=== PATIENT | female | born 1940 | race Caucasian/White ===

== ENCOUNTER 2016-05-25 19:07 | Emergency (ER) | payer MEDICARE, BC ==
[2011-06-18 10:47] VITALS: BMI 38.1
== END 2016-05-25 22:03 | disposition home or self-care (01) ==
LOC: D.ER 19:07
DX: M75.102 Unspecified rotator cuff tear or rupture of left shoulder, not specified as traumatic (principal); M54.12 Radiculopathy, cervical region; J45.909 Unspecified asthma, uncomplicated; C67.9 Malignant neoplasm of bladder, unspecified; E11.9 Type 2 diabetes mellitus without complications; Z79.4 Long term (current) use of insulin; K21.9 Gastro-esophageal reflux disease without esophagitis; Z95.0 Presence of cardiac pacemaker; I12.9 Hypertensive chronic kidney disease with stage 1 through stage 4 chronic kidney disease, or unspecified chronic kidney disease; N18.9 Chronic kidney disease, unspecified; F41.9 Anxiety disorder, unspecified

== ENCOUNTER 2016-12-01 05:38 | Inpatient (IN) | payer MEDICARE, BC ==
[~2016-12-01] VITALS: Ht 152.4 cm; Wt 75.5 kg
[2016-12-01] VITALS (9 sets, daily range): BP systolic 130–143; BP diastolic 49–93; BMI 37.1
--- NOTE | ~2016-12-01 | HEMODYNAMI ---
PATIENT:NISHA MORALES MEDICAL RECORD: [id number] : 42 LOCATION:[facility] D.2310 ADMISSION DATE: 12/01/16 Generatedon:12/02/201611:59 Patient name: NISHA MORALES Patient #: [id number] SSN : : 1940 Date of study: 12/02/2016 Page: Of Hemodynamic Procedure Report Patient Data Patient Demographics Procedure consent was obtained First Name: NISHA Gender: Female Last Name: CARMEN : 1940 [facility] Initial: MELIDA Age: 76 year(s) Patient #: [id number] Race: Unknown Additional ID: [id number] Contact details [address]: [address] [place] [address] State: [place] City: [place] Zip code: [address] Past Medical History Allergies Allergen Reaction Date Comments Reported Heparin agents 12/02/2016 Iodine 12/02/2016 Other allergy 12/02/2016 Levaquin Admission Admission Data Admission Date: 12/01/2016 Admission Time: 6:35 Room #: D.2310 Procedure Procedure Types Cath Procedure Diagnostic Procedure LHC LHC w/Coronaries w/Grafts Procedure Description Procedure Date Procedure Date: 12/02/2016 Procedure Start Time: 11:40 Procedure End Time: 11:59 Procedure Staff Name Function Fredis Sharma MD Performing Physician Lorna Gannon RT Scrub Aubrie Phelps RN Nurse Deepa Chambers RT Monitor Procedure Data Cath Procedure Fluoroscopy Diagnostic fluoroscopy Total fluoroscopy Time: 4.3 time: 4.3 min min Diagnostic fluoroscopy Total fluoroscopy dose: 367 dose: 367 mGy mGy Contrast Material Contrast Material Type Amount (ml) Isovue 300 69 Entry Location Entry Primary Successful Side Size Upsize Upsize Entry Closure Succes sful Closure Location (Fr) 1 (Fr) 2 (Fr) Remarks Device Remarks Femoral Right 5 Fr Exoseal artery Estimated blood loss: 5 ml Diagnostic catheters Device Type Used For End Catheter Placement Cordis 5Fr JL 4.0 Left Coronary Catheter (MP) Angiography Diagnostic Infinity 5Fr Right Coronary AR MOD Catheter Angiography Diagnostic Infinity 5Fr Internal mammary IM catheter arteriography Cordis 5Fr Pigtail Aortic Root Catheter (MP) Angiography Procedure Complications No complications Procedure Medications Medication Administration Route Dosage Oxygen 13 l/min 0.9% NaCl I.V. Lidocaine 2% added to field 20 0.9% NaCl 1000 ml 0.9% NaCl added to field 250 ml Fentanyl I.V. 25 mcg Hemodynamics Rest Heart Rate: 97 (bpm) Pressure Samples Time Site Value (mmHg) Purpose Heart Use Rate(bpm) 11:53 AO 130/68(95) Snapshot 99 Snapshots Pre Cath Intra NCS Post Cath Vital Signs Time Heart Resp SPO2 etCO2 NIBP (mmHg) Rhythm Pain Sedation Rate (ipm) (%) (mmHg) Status Level (bpm) 11:32:26 98 20 98 0 134/84(105) Paced 0 (11) 10(A) , No pain 11:36:47 97 19 100 0 133/82(106) Paced 0 (11) 10(A) , No pain 11:41:04 98 16 100 0 133/87(102) Paced 0 (11) 10(A) , No pain 11:45:25 98 17 98 0 131/79(99) Paced 0 (11) 9(A) , No pain 11:49:45 96 18 97 0 130/75(104) Paced 0 (11) 9(A) , No pain 11:54:07 98 19 98 0 126/74(100) Paced 0 (11) 10(A) , No pain 11:58:27 98 19 97 0 134/74(106) Paced 0 (11) 10(A) , No pain Medications Time Medication Route Dose Verified Delivered Reason Notes Effe ctiveness by by 11:33:56 Oxygen oximizer 13 Fredis Buffie Per continued mask l/min Zachary Phelps RN physician from icu 11:34:35 0.9% NaCl I.V. kvo Fredis Buffie Per ml/hr Zachary Phelps RN physician 11:34:45 Lidocaine added to 20ml Fredis Fredis for local 2% field vial Zachary Sharma MD anesthetic 11:38:22 0.9% NaCl for 1000 Fredis Fredis Per assist ml Zachary Sharma MD physician fliud 11:38:40 0.9% NaCl added to 250 Fredis Fredis Per field ml Zachary Sharma MD physician 11:42:03 Fentanyl I.V. 25 Fredis Fredis for [facility] [place] Zachary Sharma MD pain Procedure Log Time Note 10:53:19 Aubrie Phelps RN sent for patient. Start room use. 10:53:31 Time tracking: Regular hours 10:53:34 Plan of Care:Hemodynamics will remain stable., Cardiac rhythm will remain stable., Comfort level will be maintained., Respiratory function will remain adequate., Patient/ family verbilizes understanding of procedure., Procedure tolerated without complication., Recovers from procedure without complications.. 11:20:52 Patient received from ICU to CCL 3 Alert and oriented. Tansferred to table in Supine position. 11:20:54 Warm blankets applied, and mervin hugger turned on for patient comfort. 11:20:54 Correct patient and procedure confirmed by team. 11:20:55 Signed procedure consent form obtained from patient. 11:20:56 ECG and BP/O2 sat monitors applied to patient. 11:20:57 Full Disclosure recording started 11:30:03 Vital chart was started 11:30:09 Rhythm: paced 11:30:56 H&P Date Dictated: 12/01/2016 Within 30 days and on chart.. 11:31:08 Pre-procedure instructions explained to patient. 11:31:08 Pre-op teaching completed and patient verbalized understanding. 11:31:55 Family unavailable. 11:31:56 Patient NPO since Midnight. 11:32:18 Patient allergic to Heparin agents 11:32:23 Patient allergic to Iodine 11:32:33 Patient allergic to Other allergyLevaquin 11:32:35 Is the patient allergic to Iodine/contrast media? Yes. 11:32:37 Was the patient premedicated? Yes 11:33:24 Is patient on blood thinner?Yes 11:33:30 ACC The patient was administered the following blood thiners within the last 24 hours: None 11:33:32 Patient diabetic? Yes. 11:33:34 If diabetic: On Metformin? No 11:33:37 Previous problem with sedation/anesthesia? No ? 11:33:37 Snore? Yes 11:33:38 Sleep apnea? No 11:33:39 Deviated septum? No 11:33:40 Opens mouth fully? Yes 11:33:41 Sticks out tongue? Yes 11:33:45 Airway obstruction? Yes COPD 11:33:54 Dentures? No ? 11:33:56 Oxygen 13 l/min oximizer mask was administered by Aubrie Phelps RN; Per physician; continued from icu 11:33:56 Pre procedure: right dorsailis pedis pulse 2+ Normal; easily identifiable; not easily obliterated 11:33:59 Patient pain scale 0/10 ?. 11:34:06 IV patent on arrival in left hand with 0.9% NaCl at KVO. 11:34:09 Lab results completed and on chart. 11:34:11 Right groin area was prepped with chlora-prep and draped in sterile fashion 11:34:12 Alarms reviewed by R. N. 11:34:12 Sharps counted by scrub and verified by R.N. 11:34:15 Use device set Femoral Dx 11:34:16 Acist Syringe opened to sterile field. 11:34:17 Bag Decanter opened to sterile field. 11:34:17 Medline Cath Pack opened to sterile field. 11:34:18 Terumo 5Fr [place] Sheath opened to sterile field. 11:34:18 St Elvin 260cm J .035 wire opened to sterile field. 11:34:19 Acist Hand Control opened to sterile field. 11:34:20 Acist Manifold opened to sterile field. 11:34:20 Diagnostic Infinity 5Fr Multipack catheter opened to sterile field. 11:34:21 Tegaderm 4 x 4 opened to sterile field. 11:34:35 0.9% NaCl kvo ml/hr I.V. was administered by Aubrie Phelps RN; Per physician; 11:34:45 Lidocaine 2% 20ml vial added to field was administered by Fredis Sharma MD; for local anesthetic; 11:35:02 Baseline sample Acquired. 11:36:31 Final Timeout: patient, procedure, and site verified with staff and physician. All members of the team are in agreement. 11:36:41 Right groin site verified by team. 11:36:51 Physical assessment completed. ASA score P 3 - A patient with severe systemic disease as per Fredis Sharma MD. 11:36:53 Sedation plan: IV Moderate Sedation Versed, Fentanyl 11:38:22 0.9% NaCl 1000 ml for assist fliud was administered by Fredis Sharma MD; Per physician; 11:38:40 0.9% NaCl 250 ml added to field was administered by Fredis Sharma MD; Per physician; 11:40:36 Procedure started. 11:40:39 Local anesthetic to right femoral artery with Lidocaine 2% by Fredis Sharma MD.INITIAL ACCESS ONLY 11:40:40 Zero performed for pressure channel P1 11:40:51 A 5 Fr sheath was inserted into the Right Femoral artery 11:42:03 Fentanyl 25 mcg I.V. was administered by Fredis Sharma MD; for back pain; 11:43:34 A Cordis 5Fr JL 4.0 Catheter (MP) was advanced over the wire and used for Left Coronary Angiography. 11:44:57 Catheter removed. 11:45:24 A Diagnostic Infinity 5Fr AR MOD Catheter was advanced over the wire and used for Right Coronary Angiography. 11:50:40 Catheter removed. 11:51:22 A Diagnostic Infinity 5Fr IM catheter was advanced over the wire and used for Internal mammary arteriography. 11:53:39 Catheter removed. 11:53:49 A Cordis 5Fr Pigtail Catheter (MP) was advanced over the wire and used for Aortic Root Angiography. 11:54:03 Injector settings: Ml/sec: 15, Volume: 30, 11:54:45 Catheter removed. 11:54:56 Cordis 6Fr Exoseal opened to sterile field. 11:55:07 Sheath removed intact; hemostasis achieved with Exoseal to the Right Femoral artery. 11:55:09 Procedure ended.(Physican Out) 11:55:30 Fluoroscopy time 04.30 minutes. 11:55:36 Flurop Dose total: 367 11:55:36 Fluoroscopy dose: 367 mGy 11:55:51 Contrast amount:Isovue 300 69ml. 11:56:18 Sharps counted by scrub and verified by R.N. 11:56:26 Insertion/operative site no bleeding no hematoma. 11:56:29 Post-op/insertion site Right Femoral artery dressed using a 4 x 4 and Tegaderm. 11:56:32 Post right femoral artery:stable, clean and dry 11:56:33 Post Procedure Pulses reassessed and unchanged 11:56:38 Post-procedure physical assessment completed. ASA score P 3 - A patient with severe systemic disease as per Fredis Sharma MD. 11:56:40 Post procedure rhythm: unchanged. 11:56:42 Estimated blood loss: 5 ml 11:56:43 Post procedure instruction explained to patient.Patient verbalizes understanding. 11:56:43 Patient needs reinforcement of post procedure teaching. 11:56:56 Procedure type changed to Cath procedure, Diagnostic procedure, LHC, LHC w/Coronaries w/Grafts 11:57:00 Procedure Complication : No complications 11:57:02 See physician's report for complete and final results. 11:57:25 Procedure and supply charges have been captured, reviewed, submitted and are correct. 11:59:15 NO MODERATE SEDATION USED FOR PROCEDURE 11:59:19 Vital chart was stopped 11:59:22 Report given to ICU. 11:59:25 Patient transfered to ICU with Bed. 11:59:37 Procedure ended. 11:59:37 Full Disclosure recording stopped 11:59:40 End room use (Document Last) Device Usage Item Name Manufacture Quantity Catalog Hospital Part Current Minimal Lo t# / Number Charge Number Stock Stock Serial# Code Acist Acist 1 [id number] 845709 101617 134134 20 Syringe Medical [employer] Inc Bag Microtek 1 2002S 248312 63233 807124 5 Decanter [employer] Inc. Medline Cardinal 1 [id number] 682869 70852 866258 5 Cath Pack Health Terumo 5Fr Terumo 1 [id number] 962010 727398 385251 [address] Elvin 1 289872 512290 313331 301215 30 260cm J .035 wire Acist Hand Acist 1 38977 207562 355719 825972 5 Cocodrilo Dog [employer] Inc Acist Acist 1 46340 184609 441041 603882 5 TerraLUX Medical Systems Inc Diagnostic Cardinal 1 [id number] 984901 68321 923457 30 WegoWise 5Fr Multipack catheter Tegaderm 4 3M 1 1626W 193486 292507 294543 5 x 4 Cordis 5Fr Cardinal 1 508325 5 JL 4.0 Health Catheter (MP) Diagnostic Cardinal 1 [id number] 035362 665234 577633 15 WegoWise 5Fr AR MOD Catheter Diagnostic Cardinal 1 [id number] 492517 899358 131601 5 WegoWise 5Fr IM catheter Cordis 5Fr Cardinal 1 464440 5 Pigtail Health Catheter (MP) Cordis 6Fr Cardinal 1 EX600 093741 772900 387992 10 Exoseal Health Signature Audit [place] Stage Time Signature Unsigned Intra-Procedure 12/02/2016 Deepa 11:59:50 AM Counts RT(R) Signatures Monitor : Deepa Signature : Counts RT Date : Time : [address] [place] [address]
[2016-12-01 06:04] LABS: BASOPHILS 0.2 % (0-2); EOSINOPHILS 0.1 % (0-7); HEMATOCRIT 35.5 % (36.0-48.0); HEMOGLOBIN 11.2 g/dL (12-16); IMMATURE GRANULOCYTES 0.5 % (0-5); LYMPHOCYTES 7.7 % (15-50); MCH 28.8 pg (26.0-34.0); MCHC 31.5 g/dL (31.0-37.0); MCV 91.3 fL (80.0-100.0); MEAN PLATELET VOLUME 10.7 fL (7.4-10.4); MONOCYTES 4.5 % (2-11); RBC 3.89 10x6/uL (4.00-5.40); RDW 17.4 % (11.5-14.5); WBC 13.4 10x3/uL (4.8-10.8)
[2016-12-01 06:22] LABS: PLATELET COUNT 346 10x3/uL (130-400)
[2016-12-01 06:31] LABS: ALBUMIN 3.5 g/dL (3.4-5.0); ALKALINE PHOSPHATASE 165 U/L (46-116); ALT (SGPT) 24 U/L (10-68); BILIRUBIN - TOTAL 0.48 mg/dL (0.2-1.3); CALC OSMOLALITY 297 mosm/kg (275-300); CALCIUM 9.7 mg/dL (8.5-10.1); CARBON DIOXIDE 22.7 mmol/L (21.0-32.0); CHLORIDE - SERUM 99 mmol/L (98-107); CREATININE - SERUM 2.7 mg/dL (0.6-1.3); POTASSIUM - SERUM 4.1 mmol/L (3.5-5.1); PROTEIN - SERUM 8.3 g/dL (6.4-8.2); SODIUM 136 mmol/L (136-145); UREA NITROGEN 41 mg/dL (7-18); eGFR NON AFRICAN AMERICAN 18 mL/min (90-120)
[2016-12-01 06:37] LABS: GLUCOSE 390 mg/dL (74-106)
[2016-12-01 06:47] LABS: CHOL - HDL RATIO 2.7 ratio (2.3-4.1); CHOLESTEROL, TOTAL 169 mg/dL (0-200); CKMB 4.9 U/L (0.0-3.6); CREATINE KINASE 335 UL (21-215); HDL CHOLESTEROL 63 mg/dL (32-96); LDL CHOLESTEROL 87 mg/dL (0-100); LDL-HDL RATIO 1.4 ratio (1.5-3.5); PRO BNP 4542 pg/mL (0-450); TRIGLYCERIDE 95 mg/dL (30-200)
--- NOTE | 2016-12-01 15:34 | NUR ---
PT ARRIVED FROM ER VIA STRETCHER. ON 13L O2 VIA OXYMIZER. PT IS AWAKE AND ALERT. ANSWERS QUESTIONS APROPRIATELY. BP 142/83, HR 93, O2 SAT 96%, ORAL TEMP 97.8, RR 20. PT ADMITTED WITH SOB AND CHF. SOB NOTED ON EXERTION. LEFT HAND AC SALINE LOC. FREQUENT NON PRODUCTIVE COUGH NOTED. REPORTS NO CHEST PAIN AT THIS TIME. PERIPHERAL PULSES 2+. PT REPORTS NEUROPATHY ON HER FEET. SKIN WARM AND DRY. TRANSPARENT. CAPILLARY REFILL GREATER <3SEC. FULL ASSESSMENT CHARTED ON ASSESSMENT SECTION. PT DENIES OTHER NEEDS AT THIS TIME.
[2016-12-01] MEDS ORDERED: PREDNISONE10 MG PO (15:59)
[2016-12-01] MEDS ORDERED: DOXYCYCLINE HY100 M2 PO (16:01)
[2016-12-01] MEDS ORDERED: NORVASC5 MG PO (16:05)
[2016-12-01] MEDS ORDERED: ZOCOR10 MG PO (16:06)
[2016-12-01] MEDS ORDERED: LEXAPRO5 MG PO (16:08)
[2016-12-01] MEDS ORDERED: FUROSEMIDE40 MG PO (16:09)
[2016-12-01] MEDS ORDERED: TOPROL XL50 MG PO (16:10)
[2016-12-01] MEDS ORDERED: ISOSORBIDE MON120 M1 PO (16:11)
[2016-12-01] MEDS ORDERED: PLAVIX75 MG PO (16:13)
--- NOTE | 2016-12-01 19:00 | NUR ---
REPORT RECEIVED AND ASSESSMENT COMPLETED. SEE FLOWSHEET FOR FULL DETAILS. PT IS ON 13L HIGH FLOW CANNULA. SAT 96%. CRACKLES HEARD THROUGHOUT UPPER LOBES, AND IN MIDDLE RIGHT LOBE. LOWER LOBES BIMMINISHED. PT VERY SOB WITH ACTIVITY. CARDIOLOGY CONSULTED AND LASIX IS BEING GIVEN. WILL MONITOR THROUGHOUT SHIFT
--- NOTE | 2016-12-01 23:00 | NUR ---
REASSESSMENT COMPLETED SEE FLOWSHEET FOR FULL DETAILS. LASIX GIVEN SCHEDULED. WILL MONITOR URINE OUTPUT.
[2016-12-02] VITALS (28 sets, daily range): BP systolic 102–145; BP diastolic 60–88; Ht 152.4 cm; Wt 75.5 kg
--- NOTE | 2016-12-02 01:15 | NUR ---
NO CHANGES IN STATUS AT THIS TIME. WILL CONTINUE TO MONITOR
--- NOTE | 2016-12-02 03:00 | NUR ---
REASSESSMENT COMPLETED. SEE FLOWSHEET FOR FULL DETAILS. RADIOLOGY AT BEDSIDE FOR AM CXR. WILL CONTINUE TO MONITOR
[2016-12-02 03:44] LABS: BASOPHILS 0.3 % (0-2); EOSINOPHILS 0.7 % (0-7); HEMATOCRIT 32.6 % (36.0-48.0); HEMOGLOBIN 10.3 g/dL (12-16); IMMATURE GRANULOCYTES 0.3 % (0-5); LYMPHOCYTES 7.8 % (15-50); MCH 28.9 pg (26.0-34.0); MCHC 31.6 g/dL (31.0-37.0); MCV 91.3 fL (80.0-100.0); MEAN PLATELET VOLUME 10.1 fL (7.4-10.4); MONOCYTES 8.1 % (2-11); NEUTROPHILS 82.8 % (40-80); PLATELET COUNT 280 10x3/uL (130-400); RBC 3.57 10x6/uL (4.00-5.40); RDW 17.1 % (11.5-14.5); WBC 15.3 10x3/uL (4.8-10.8)
[2016-12-02 04:20] LABS: ALKALINE PHOSPHATASE 127 U/L (46-116); ALT (SGPT) 24 U/L (10-68); BILIRUBIN - TOTAL 0.77 mg/dL (0.2-1.3); CALC OSMOLALITY 294 mosm/kg (275-300); CALCIUM 9.1 mg/dL (8.5-10.1); CHLORIDE - SERUM 102 mmol/L (98-107); CKMB 15.2 U/L (0.0-3.6); CREATININE - SERUM 2.5 mg/dL (0.6-1.3); GLUCOSE 231 mg/dL (74-106); MAGNESIUM - SERUM 1.8 mg/dL (1.8-2.4); PHOSPHOROUS 3.9 mg/dL (2.5-4.9); PRO BNP 7997 pg/mL (0-450); PROTEIN - SERUM 7.3 g/dL (6.4-8.2); SODIUM 139 mmol/L (136-145); UREA NITROGEN 41 mg/dL (7-18); eGFR NON AFRICAN AMERICAN 20 mL/min (90-120)
--- NOTE | 2016-12-02 05:00 | NUR ---
TROPONIN LEVEL HAD SIGNIFICANT CHANGE FROM LAST DRAW. NOW 12.470. NOTIFIED. WILL CONTINUE TO MONITOR
--- NOTE | 2016-12-02 07:26 | HP ---
PATIENT: NISHA MORALES MEDICAL RECORD: [id number] ACCOUNT: [id number] LOCATION:[facility] D.2310 : 42 ADMISSION DATE: 12/01/16 HISTORY AND PHYSICAL EXAMINATION HISTORY OF PRESENT ILLNESS: A 76-year-old female who presented to the Emergency Room with progressive shortness of breath for the past week. PAST MEDICAL HISTORY: Significant for arthritis, asthma, COPD, CHF, known coronary artery disease, multiple stents, insulin-dependent diabetes mellitus, GERD, previous UT, hyperlipidemia, hypertension, insomnia, chronic kidney disease. PAST SURGICAL HISTORY: Stent placement, lumpectomy, benign biopsy, hysterectomy, appendectomy, cholecystectomy. MEDICATIONS: Reviewed as per chart. ALLERGIES: CONTRAST IODINE. REVIEW OF SYSTEMS: CONSTITUTIONAL: No known change in weight or appetite. HEENT: No cephalgia, visual changes, tinnitus, epistaxis or dysphagia. CARDIOVASCULAR: Increased shortness of breath, worsening orthopnea, has been sleeping on a recliner. PULMONARY: Denies hemoptysis. Denies night sweats. GASTROINTESTINAL: Denies hematemesis, hematochezia, or melena. GENITOURINARY: Denies dysuria. MUSCULOSKELETAL: No acute changes. ENDOCRINE: Denies polyuria, polydipsia, or polyphagia. Has had increased blood sugars. PHYSICAL EXAMINATION: VITAL SIGNS: As per intake, the patient presently in the ER. O2 sats 90% with supplemental O2. HEENT: Normocephalic, atraumatic. Eyes: Pupils are equally round and reactive to light and accommodation. Extraocular muscles intact. Conjunctiva was not injected. Ears: Canals patent, TMs are intact. Nose: Nares patent without drainage. Throat: No erythema. No exudates. NECK: Supple. No lymphadenopathy. No JVD. HEART: Regular rate and rhythm. No S3, S4. No rub. LUNGS: Diminished breath sounds at the bases. ABDOMEN: Soft, nontender. Bowel sounds all 4 quadrants. EXTREMITIES: Present times 4, no edema. NEUROLOGIC: Intact. LABORATORY DATA: ABG: pH of 7.303, pCO2 of 45.2, pO2 of 55, bicarbonate 22, CO2 23.8. Glucose 431. Hemoglobin 13.6, hematocrit 40, white count 13.4. The patient recently started on steroids. She is afebrile. Chemistry shows sodium of 136, potassium 4.1, chloride 99, bicarbonate 22.7, BUN 41, creatinine 2.7, glucose 390. Cardiac enzymes: CK 335, CK-MB is 4.9. Troponin 0.06. ProBNP is 4542. Chest x-ray: Cardiomegaly with moderate pulmonary edema, trace right pleural effusion. ASSESSMENT AND PLAN: HISTORY AND PHYSICAL [id number] NISHA MORALES 1. Hypoxemia, CHF, chest pain with elevated cardiac enzymes, chronic kidney disease. The patient is admitted to the ICU. Cautious diuresis. Consult cardiology with her known history of cardiovascular disease and also consult pulmonology with her hypoxemia. 2. Metabolic acidosis and uncontrolled diabetes, sliding scale insulin, high resistance. TRANSINT:[id number] Voice Confirmation ID: [id number] DOCUMENT ID: [id number] TASHI CUENCA DO at 0726 CC: [id number] DICTATION DATE: 12/01/16 1150 BEET WORKER: 12/01/16 1242 ADM IN [facility] [address] [place] [address]
--- NOTE | 2016-12-02 07:27 | NUR ---
ASSISTED TO TOILET, CONTINENT VOID NOTED VIA BEDSIDE TOILET. PT NOW IN BED. DENEIS ANY NEEDS. WILL CONTINUE PLAN OF CARE.
[2016-12-02 09:22] LABS: INR 1.08 (0.85-1.17); PROTIME 13.9 SECONDS (11.6-15.0)
[2016-12-02 09:23] LABS: APTT 30.6 SECONDS (22.8-39.4)
--- NOTE | 2016-12-02 10:28 | NUR ---
PER DIRECTOR OF CORPORATE RESPONSIBILITY ORDERS; PREOP PT. WILL PREOP NOW.
--- NOTE | 2016-12-02 11:15 | NUR ---
NORRIS PLACED AT THIS TIME PER DR SOLOMON ORDERS. NOTED 300ML CLEAR YELLOW URINE. NO ACUTE DISTRESS NOTED. WILL CONTINUE PLAN OF CARE.
--- NOTE | 2016-12-02 11:20 | NUR ---
LEFT AT THIS TIME TO DAIRY FEED MIXING OPERATOR VIA BED ACCOMPANED BY HOSPITAL STAFF. IS AWARE. PT DENIES ANY QUESTIONS OR CONCERNS. NO ACUTE DISTRESS NOTED.
--- NOTE | 2016-12-02 12:17 | NUR ---
PT RETURNED FROM MACHINE TOOL TECHNOLOGY INSTRUCTOR AT THIS TIME. NO ACUTE DISTRESS NOTED. GROIN DRSG TO BE CDI, NO S/S BLEEDING NOTED. WILL CONTINUE PLAN OF CARE.
--- NOTE | 2016-12-02 13:01 | NUR ---
NO ACUTE DISTRESS NOTED. AT BEDSIDE, DR VELAZQUEZ HAS SPOKEN WITH AND GIVEN UPDATE. PT RESTING. RESPIRATIONS STEADY AND UNLABORED. AWAKENS EASILY WHEN SPOKEN TO. WILL CONTINUE PLAN OF CARE.
--- NOTE | 2016-12-02 16:05 | NUR ---
UP IN BED VISITING WITH AT THIS TIME. DENIES ANY NEEDS. NO ACUTE DISTRESS NOTED. WILL CONTINUE PLAN OF CARE.
--- NOTE | 2016-12-02 18:22 | NUR ---
UP IN BED WATCHING TV AT THIS TIME. NO ACUTE DISTRESS NOTED. PT NOTED TO HAVE SOME NONPRODUCTIVE COUGHING. PT NOTED TO HAVE SOME DISCOMFORT TO SHOULDERS AND BACK, ACHING DISCOMFORT, DR CUENCA PAGED TO NOTIFY. WAITING FOR CALLBACK. TURNED Q2H. WILL CONTINUE PLAN OF CARE.
--- NOTE | 2016-12-02 19:30 | NUR ---
PT IN BED WITH EYES OPEN WATCHING TV. NO S/S OF DISTRESS NOTED. ALERT AND ORIENTED. NO NEEDS OR CONCERNS NOTED AT THIS TIME. CALL LIGHT IN REACH.
--- NOTE | 2016-12-02 20:31 | NUR ---
PT IN BED WITH AT BEDSIDE. AT 2009 PT COMPLAINS OF SUDDEN ONSET OF CHEST PAIN WITH HR 129 AND RESP. 18-26. PHYSICIAN ON SITE WITH ORDERS FOR PRN MORPHINE AND NITRO. PT STATES RELIEF IN INTENSITY. WILL CONTINUE TO OBSERVE. CALL LIGHT IN REACH.
--- NOTE | 2016-12-02 23:59 | NUR ---
PT IV ALARM CONTINUES TO ALARM DUE TO OCCLUSION WITH IV SITE MOVED TO LEFT FOREARM WITH 22GA IV CATHETER USED. NO FURTHER CONCERNS WITH IV AT THIS TIME. DR. VELAZQUEZ CALLED FOR CONTINUOUS SINUS TACH OF 120 TO 130 AT 2300 AND RETURNS CALL AND PT HEART RARE 117-119 INFORM OF ORDERS RECEIVED FOR MORPHINE AND ATIVAN WITH NO NEW ORDERS GIVEN. PT RESTING WITH EYES CLOSED AND CHEST RISING. NO CONCERNS NOTED AT THIS TIME. WILL CONTINUE TO OBSERVE. CALL LIGHT IN REACH.
[2016-12-03] VITALS (24 sets, daily range): BP systolic 107–153; BP diastolic 53–96
--- NOTE | 2016-12-03 01:15 | NUR ---
PT IN BED WITH EYES CLOSED AND CHEST RISING. FREQUENTLY ROUSES. PT CALM AND NO COMPLAINTS MADE KNOWN AT THIS TIME. WILL CONTINUE OBSERVE. CALL LIGHT IN REACH.
--- NOTE | 2016-12-03 03:00 | NUR ---
PT IN BED WITH EYES CLOSED AND CHEST RISING. HR 117-120 WITH PHYSICIAN AWARE. NO OTHER CONCERNS NOTED. WILL CONTINUE TO OBSERVE. CALL LIGHT IN REACH
[2016-12-03 04:49] LABS: APPEARANCE HAZY (CLEAR); BILIRUBIN NEGATIVE (NEGATIVE); COLOR YELLOW (YELLOW); EPITHELIAL CELLS RARE /hpf (0-5); GLUCOSE 100 mg/dL (NEGATIVE); KETONE NEGATIVE (NEGATIVE); NITRITE NEGATIVE (NEGATIVE); PROTEIN 1+ mg/dL (NEGATIVE); SPECIFIC GRAVITY 1.015 (1.005-1.020); UROBILINOGEN NORMAL (NORMAL); WHITE CELLS - URINE 0-5 /hpf (0-5)
[2016-12-03 04:51] LABS: CREATININE - URINE 85.2 mg/dL (30-125); PRO/CRE RATIO URINE 1.8 mg/g; PROTEIN - URINE 149.3 mg/dL (0.0-11.9)
[2016-12-03 05:12] LABS: BASOPHILS 0.1 % (0-2); EOSINOPHILS 0 % (0-7); HEMATOCRIT 35.4 % (36.0-48.0); HEMOGLOBIN 11.3 g/dL (12-16); IMMATURE GRANULOCYTES 0.5 % (0-5); LYMPHOCYTES 4.6 % (15-50); MCHC 31.9 g/dL (31.0-37.0); MEAN PLATELET VOLUME 10.7 fL (7.4-10.4); MONOCYTES 6.2 % (2-11); NEUTROPHILS 88.6 % (40-80); PLATELET COUNT 320 10x3/uL (130-400); RBC 3.89 10x6/uL (4.00-5.40); RDW 16.9 % (11.5-14.5); WBC 17.6 10x3/uL (4.8-10.8)
--- NOTE | 2016-12-03 05:15 | NUR ---
PT IN BED WITH EYES OPEN WATCHING TV. AT BEDSIDE. NO CONCERNS NOTED. UA COLLECTED AND SENT TO LAB. WILL CONTINUE TO OBSERVE. CALL LIGHT IN REACH.
[2016-12-03 05:26] LABS: ANION GAP 15.4 mmol/L (8-16); CALCIUM 9.5 mg/dL (8.5-10.1); CARBON DIOXIDE 25.1 mmol/L (21.0-32.0); CREATININE - SERUM 2.9 mg/dL (0.6-1.3); MAGNESIUM - SERUM 2.1 mg/dL (1.8-2.4); PHOSPHOROUS 4.5 mg/dL (2.5-4.9); POTASSIUM - SERUM 3.5 mmol/L (3.5-5.1)
[2016-12-03 08:17] LABS: IMMUNOGLOBULIN E 267 IU/mL (0-100)
--- NOTE | 2016-12-03 09:15 | NUR ---
ANXIOUS AND HAVING RESP DIFFICULTY. SPO2 85. MORPHINE GIVEN IV AND SL NTG GIVEN. O2 INCREASED TO 15LPM OXIMIZER.
--- NOTE | 2016-12-03 10:45 | NUR ---
O2 CHANGED TO BIPAP FIO2 65%.
--- NOTE | 2016-12-03 12:00 | NUR ---
DR. AMURICE CONSULTED TO PLACE TRIALYSIS CATH.
--- NOTE | 2016-12-03 16:39 | NUR ---
NUCLEAR MED SCAN CANCELLED FOR TODAY. UNABLE TO LIE FLAT FOR SCAN. WILL ATTEMPT AGAIN IN AM.
--- NOTE | 2016-12-03 16:40 | NUR ---
PATIENT UNABLE TO LIE FLAT. UNABLE TO PERFORM V/Q SCAN UNLESS PATIENT CAN LIE FLAT. V/Q IS CANCELLED FOR NOW. IF PATIENT BECOMES ABLE TO LIE FLAT AND PROCEED WITH V/Q, PLEASE RE-ORDER THE SCAN SO THAT RADIOLOGY WILL KNOW TO NOTIFY NUCLEAR MED.
--- NOTE | 2016-12-03 16:56 | EC ---
PATIENT:NISHA MORALES DATE OF SERVICE: 12/01/16 SEX: F MEDICAL RECORD: [id number] DATE OF : 42 LOCATION:[facility] AGE OF PATIENT: 76 ADMISSION DATE: 12/01/16 REFERRING PHYSICIAN: INTERPRETING PHYSICIAN: REID ZAYAS MD ECHOCARDIOGRAM REPORT ECHO CHARGES 4 ECHO COMPLETE CLINICAL DIAGNOSIS: CHEST PAIN,CHF ECHOCARDIOGRAPHIC MEASUREMENTS (adult normal given) AC root (d.<3.7cm) 2.1 cm LV Septum d (<1.2 cm> 1.1 cm Valve Excursion 1.3 cm LV Septum (systole) 1.3 cm Left Atria (s.<4.0cm> 3.3 cm LVPW d(<1.2cm) 1.5 cm RV (d.<2.3cm) 2.9 cm LVPW (sytole) 1.6 cm LV diastole(<5.6CM) 5.7 cm MV E-F(>70mm/sec) cm LV systole 4.5 cm LVOT Diameter 1.1 cm MV exc.(>10mm) 0.80 cm Est.ejection fraction (50-75%) % Pericardial Effusion N DOPPLER: LVIT cm/sec A cm/sec E cm/sec LA cm/sec RVSP 53 mmHg LVOT 134 cm/sec AOP1/2T m/s Asc. Ao 203 cm/sec RVOT cm/sec RA cm/sec PA cm/sec AV Gradient Peak 16.56mmHg AV Mean 8.41 mmHg AV Area 1.0 cm MV Gradient Peak 12.05mmHg MV Mean 4.49 mmHg MV Area cm COMMENTS: Needlemaker: Horace SKINNER Fibre Optic Cable Splicer: 1 Dr. Zayas TAPE# PACS DATE OF SERVICE: 12/02/2016 Echocardiogram FINDINGS: 1. Left ventricle chamber size is mildly dilated. Left ventricular systolic function is mildly reduced, overall ejection fraction 40%. 2. Left atrium, right atrium, and right ventricle chamber sizes are within normal limits. Left atrium measures 3.3 cm. 3. Valvular structures: Aortic valve demonstrates mild calcific aortic ECHOCARDIOGRAM REPORT [id number] NISHA MORALES stenosis. Valve area calculates to 1.0 cm-squared gradient of 16 mm across the valve. The remaining valvular structures have normal structure and motion. 4. Doppler interrogation elsewise reveals moderate to severe mitral regurgitation, moderate to severe tricuspid regurgitation, no other valvular insufficiency or stenosis. Pulmonary systolic pressure is elevated estimated at 53 mmHg. 5. No evidence of pericardial effusion or left ventricular thrombus. TRANSINT:[id number] Voice Confirmation ID: [id number] DOCUMENT ID: [id number] REID ZAYAS MD at 1656 CC: LO OTOOLE DO [id number] DICTATION DATE: 12/02/16 1324 MATERIALS ASSOCIATE: 12/02/16 1337 ADM IN [facility] [address] [place] [id number]
--- NOTE | 2016-12-03 17:00 | NUR ---
O2 CHANGED TO OXIMIZER @ 15 LPM.
--- NOTE | 2016-12-03 17:50 | NUR ---
O2 DECREASED TO 12 LPM OXIMIZER
--- NOTE | 2016-12-03 19:00 | NUR ---
REPORT RECIEVED, SHIFT ASSESSMENT COMPLETE, PLEASE SEE FLOW SHEETS FOR DETAILS. WAKES TO VOICE, ORIENTED X4, FALLS ASLEEP EASILY. DENIES PAIN/NEEDS ATT. PERLLA. LUNGS WITH EXPIRATORY WHEEZE IN RUL, DIMINISHED IN ALL LOWER LOBES WITH SHALLOW UNLABORED BREATHS AT 23/MIN. S1S2 HEARD AND ST NOTED ON MONITOR, PPP, CAP REFIL <3SEC.. BS ACTIVE X4, NORRIS IN PLACE AND DRAINING VIA GRAVITY WITH CLEAR YELLOW URINE WITH SEDIMENT. LEFT IJ TRIALYSIS WITH DOBUTAMINE AT SET RATE, LEFT FOREARM WITH NS AND LASIX INFUSING. SKIN SMOOTH AND SCD'S ON AND RUNNING. VSS ATT, BED LOW AND LOCKED, CALL LIGHT IN REACH. WILL CPOC.
--- NOTE | 2016-12-03 20:59 | NUR ---
RESTING, WOKE TO SPEACH, INSTRUCTED ON GIVING SPUTUM SPECIMINE AND PROVIDED SPECIMINE CUP, VERBALIZED UNDERSTANDING. VSS ATT, BED LOW AND LOCKED, CALL LIGHT IN REACH. DENIES PAIN/NEEDS ATT, WILL CPOC.
--- NOTE | 2016-12-03 23:00 | NUR ---
REC'ED REPORT FROM OUTGOING RN - PT AA&O X4 - DENIES PAIN OR DISCOMFORT - CONTINOUS CARDIAC MONITORING - CPOC
--- NOTE | 2016-12-03 23:24 | NUR ---
Gave report to Maria Fernanda RENTERIA. She will resume care of pt.
--- NOTE | 2016-12-03 23:30 | NUR ---
ASSESSMENT COMPLETE - PT RESTING WITH EYES CLOSED - RESPIRATIONS REG RATE AND RHYTHM - CONTINUE POC.
[2016-12-04] VITALS (26 sets, daily range): BP systolic 87–135; BP diastolic 38–81
--- NOTE | 2016-12-04 00:58 | NUR ---
SINUS TACHYCARDIA WITH INTEMTITTENT PACs - CONSULTED CHEMISTRY PROFESSOR - REVIEWED PREVIOUS EKGs - PT HAS HAD PACs PRIOR - PT AA&OX4 - PT DENIES DISCOMFORT EXCEPT A KNOT ON THE LEFT SIDE OF HER NECK 'THAT COMES AND GOES' - STATED THE ENT MD KNOWS ABOUT THIS. DENIES ANY DISCOMFORT - PT DOES HAVE A PACEMAKER/DEFIBULATOR. PT CHANGED FROM st WITH PACs TO bbb - CONTINUES ELEVATED HR 110s TO 120s - PT RESTING WITH EYES CLOSED - B/P WNL - CONTINUE TO MONITOR AND CPOC
--- NOTE | 2016-12-04 01:45 | NUR ---
PT HEART RYTHYM CHANGED BACK TO SINUS TACH - NO PACs NOTED - PT RESPIRATIONS REG RATE AND RHYTHM - PT RESTING WITH EYES CLOSED - CPOC
--- NOTE | 2016-12-04 03:16 | NUR ---
ASSESSMENT COMPLETE - PT RESTING WITH EYES CLOSED - RESPIRATIONS REGULAR RATE AND RHTHYM. CPOC
--- NOTE | 2016-12-04 03:50 | NUR ---
X-RAY TECH AT BEDSIDE - PT TOLERATE WELL. LAB DRAWN AND SENT TO LABS PT RESTING SUPINE IN BED - CONT POC
--- NOTE | 2016-12-04 04:05 | NUR ---
I&O COMPLETE - SEE MAR
[2016-12-04 04:21] LABS: BASOPHILS 0.3 % (0-2); EOSINOPHILS 0.3 % (0-7); HEMATOCRIT 30.7 % (36.0-48.0); HEMOGLOBIN 9.9 g/dL (12-16); IMMATURE GRANULOCYTES 0.5 % (0-5); LYMPHOCYTES 9.1 % (15-50); MCHC 32.2 g/dL (31.0-37.0); MEAN PLATELET VOLUME 10.2 fL (7.4-10.4); MONOCYTES 9.1 % (2-11); NEUTROPHILS 80.7 % (40-80); RBC 3.41 10x6/uL (4.00-5.40); RDW 17.1 % (11.5-14.5)
[2016-12-04 04:29] LABS: PLATELET COUNT 228 10x3/uL (130-400)
[2016-12-04 04:48] LABS: ANION GAP 13.8 mmol/L (8-16); CARBON DIOXIDE 25.2 mmol/L (21.0-32.0); CREATININE - SERUM 2.7 mg/dL (0.6-1.3)
--- NOTE | 2016-12-04 04:59 | NUR ---
TALKED TO - HAD PASSWORD - ANSWERED ALL QUESTIONS - PLANS TO VISIT THIS A.MAshly OC
--- NOTE | 2016-12-04 05:48 | NUR ---
PT RESTING WITH EYES CLOSED - RESPIRATIONS REG RATE AND RHYTHM. CPOC
--- NOTE | 2016-12-04 06:00 | NUR ---
PT REQUESTED ICE WATER - GAVE SMALL CUP OF ICE WATER PT STATES SHE IS ON A 64 OZ FLUID RESTRICTION DIET - WILL CONFIRM WITH MD. K+ AT 3.0 (NO ELECTROLYTE PROTOCOL)] NA 2.7 WBC 15.0 WILL NOTIFY ONCOMING RN - CPOC
--- NOTE | 2016-12-04 07:56 | NUR ---
LYING IN BED RESTING AT THIS TIME. NO ACUTE DISTRESS NOTED. PT AWAKENS EASILY WHEN SPOKEN TO. RESPIRATIONS STEADY AND UNALABORED. WILL CONTINUE PLAN OF CARE.
--- NOTE | 2016-12-04 09:57 | NUR ---
UP IN BED VISITING WITH AT THIS TIME. DENIES ANY NEEDS. NO ACUTE DISTRESS NOTED. WILL CONTINUE PLAN OF CARE.
--- NOTE | 2016-12-04 11:56 | NUR ---
NO CHANGE. PT DENIES ANY NEEDS. NO ACUTE DISTRESS NOTED. WILL CONTINUE PLAN OF CARE.
--- NOTE | 2016-12-04 12:30 | NUR ---
DRESSING TO LT IJ TRIALYSIS NOTED TO ONLY HAVE TAGEDERM, DRESSING CHANGE PERFORMED VIA PROTOCOL, BIOPATCH IN PLACE. NO ACUTE DISTRESS NOTED. WILL CONTINUE PLAN OF CARE.
--- NOTE | 2016-12-04 13:10 | NUR ---
PT NOTED TO DESAT TO 89% WITH GOOD WAVEFORM AND STATED SHE FELT LIKE SHE COULD NOT BREATHE VERY WELL. BIPAP PLACED TO PT, FIO2 AT 50%, OXYGEN SATURATION INCREASED TO 96% WITH GOOD WAVEFORM, PT THEN STATED SHE FELT LIKE SHE COULD BREATHE BETTER. PT THEN NOTED TO SAY SHE WAS TIRED. CURRENTLY RESTING IN BED WITH EYES CLOSED, FAMILY AT BEDSIDE. RESPIRATIONS UNLABORED AND SHALLOW. AWAKENS EASILY WHEN SPOKEN TO. WILL CONTINUE TO OBSERVE.
--- NOTE | 2016-12-04 14:29 | NUR ---
RECIEVING DIALYSIS AT THIS TIME. NO ACUTE DISTRESS NOTED. RESTING IN BED, RESPIRATIONS UNLABORED. AWAKENS EASILY WHEN SPOKEN TO. ASSIST WITH TURN Q2H. WILL CONTINUE PLAN OF CARE.
--- NOTE | 2016-12-04 15:06 | NUR ---
PT CURRENTLY ON BIPAP AND UNABLE TO TOLERATE REMOVAL OF BIPAP FOR NOW. WILL HOLD SCHEDULED MEDS UNTIL PT ABLE TO TOLERATE PO MEDS. RESTING IN BED WITH RESPIRATIONS UNLABORED. NO ACUTE DISTRESS. AWAKENS EASILY WHEN SPOKEN TO. WILL CONTINUE PLAN OF CARE.
--- NOTE | 2016-12-04 18:04 | NUR ---
UP IN BED WATCHING TV AND VISITING WITH VISITOR. OXIMIZER IN PLACE. PT TOERATING WELL. NO ACUTE DISTRESS NOTED. WILL CONTINUE PLAN OF CARE.
--- NOTE | 2016-12-04 19:00 | NUR ---
REPORT RECIEVED, SHIFT ASSESSMENT COMPLETE, PLEASE SEE FLOW SHEETS FOR DETAILS. A&O X4, DENIES PAIN/NEEDS ATT. SHANELL @ 3MM. YUHAAVIATAM OBSERVED. S1S2 HEARD, TACHYCARIDIA WITH PACING NOTED ON MONITOR. PPP. CAPR REFIL <3 SEC. LUNGS CLEAR IN UPPER LOBES, WITH CRACKLES IN RIGHT MID. LOBE AND DIMINISHED IN LOWER LOBES BILATERALLY. RR EVEN AND UNLABORED BUT SHALLOW. DENIES SOB. ON 12L OXYMIZER, SPO2 96%. BS ACTIVE X4, DENIES ANY TENDERNESS UPON PALPATION. NORRIS IN PLACE AND DRAINING VIA GRAVITY, BAG OFF FLOOR. CLEAR YELLOW URINE WITH SEDIMENT NOTED. SKIN CLEAN DRY AND INTACT. MUCUS MEMBRANES MOIST. A-FEBRILE ATT, 98.0 F TEMPERALLY. TURNING PROVIDED. BED LOW AND LOCKED, CALL LIGHT IN REACH. WILL CPOC.
--- NOTE | 2016-12-04 21:00 | NUR ---
TURNED SELF, AND PROVIDES OWN ORAL CARE. VSS, BED LOW AND LOCKED, CALL LIGHT IN REACH. WILL CPOC.
--- NOTE | 2016-12-04 21:51 | NUR ---
TALKED TO ON PHONE, HE GAVE PASSWORD. 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 HE SAID HE WOULD BE HERE IN THE MORNING.
--- NOTE | 2016-12-04 22:55 | NUR ---
REASSESSMENT COMPLETE, PLEASE SEE FLOW SHEETS FOR DETAILS. A&O X4, DENIES PAIN/NEEDS ATT. SHANELL @ 3MM. [place] OBSERVED. S1S2 HEARD, TACHYCARIDIA WITH PACING NOTED ON MONITOR. PPP. CAPR REFIL <3 SEC. HR 108 ATT. LUNGS CLEAR IN UPPER LOBES, WITH CRACKLES IN RIGHT MID. LOBE AND DIMINISHED IN LOWER LOBES BILATERALLY. RR EVEN AND UNLABORED BUT SHALLOW. DENIES SOB. ON 12L OXYMIZER, SPO2 97%. BS ACTIVE X4, DENIES ANY TENDERNESS UPON PALPATION. HAD BM AT 2200. NORRIS IN PLACE AND DRAINING VIA GRAVITY, BAG OFF FLOOR. CLEAR YELLOW URINE WITH SEDIMENT NOTED. SKIN CLEAN DRY AND INTACT. MUCUS MEMBRANES MOIST. A-FEBRILE ATT, 97.3 F TEMPERALLY. TURNING PROVIDED. BED LOW AND LOCKED, CALL LIGHT IN REACH. WILL CPOC.
[2016-12-05] VITALS (25 sets, daily range): BP systolic 106–134; BP diastolic 65–81
--- NOTE | 2016-12-05 01:00 | NUR ---
RESTING, TURNING SELF IN BED. VSS ATT, BED LOW AND LOCKED, CALL LIGHT IN REACH. WILL CPOC.
--- NOTE | 2016-12-05 03:00 | NUR ---
REASSESSMENT COMPLETE, PLEASE SEE FLOW SHEETS FOR DETAILS. WOKE TO TOUCH. A&O X4, DENIES PAIN/NEEDS ATT. SHANELL @ 3MM. WIYOT OBSERVED. S1S2 HEARD, TACHYCARIDIA WITH PACING NOTED ON MONITOR. PPP. CAPR REFIL <3 SEC. HR 102 ATT. LUNGS CLEAR IN UPPER LOBES, WITH CRACKLES IN RIGHT MID. LOBE AND DIMINISHED IN LOWER LOBES BILATERALLY. RR EVEN AND UNLABORED BUT SHALLOW. DENIES SOB. ON 12L OXYMIZER, SPO2 95%. BS ACTIVE X4, DENIES ANY TENDERNESS UPON PALPATION. NORRIS IN PLACE AND DRAINING VIA GRAVITY, BAG OFF FLOOR. CLEAR YELLOW URINE WITH SEDIMENT NOTED. SKIN CLEAN DRY AND INTACT. MUCUS MEMBRANES MOIST. A-FEBRILE ATT, 97.2 F TEMPERALLY. TURNING PROVIDED. BED LOW AND LOCKED, CALL LIGHT IN REACH. WILL CPOC.
--- NOTE | 2016-12-05 05:00 | NUR ---
RESTING, VSS, BED LOW AND LOCKED, CALL LIGHT IN REACH. WILL CPOC.
[2016-12-05 05:23] LABS: BASOPHILS 0.3 % (0-2); EOSINOPHILS 2.5 % (0-7); HEMATOCRIT 32.6 % (36.0-48.0); HEMOGLOBIN 10.4 g/dL (12-16); IMMATURE GRANULOCYTES 0.5 % (0-5); LYMPHOCYTES 7.4 % (15-50); MCH 28.9 pg (26.0-34.0); MCHC 31.9 g/dL (31.0-37.0); MCV 90.6 fL (80.0-100.0); MEAN PLATELET VOLUME 10.5 fL (7.4-10.4); MONOCYTES 7.3 % (2-11); PLATELET COUNT 256 10x3/uL (130-400); RDW 17.1 % (11.5-14.5); WBC 16.8 10x3/uL (4.8-10.8)
[2016-12-05 05:38] LABS: INR 1.31 (0.85-1.17); PROTIME 16.2 SECONDS (11.6-15.0)
[2016-12-05 05:46] LABS: ALBUMIN 2.5 g/dL (3.4-5.0); ANION GAP 13.8 mmol/L (8-16); BILIRUBIN - TOTAL 0.92 mg/dL (0.2-1.3); CALCIUM 8.9 mg/dL (8.5-10.1); CARBON DIOXIDE 26.3 mmol/L (21.0-32.0); CREATININE - SERUM 2.9 mg/dL (0.6-1.3); PHOSPHOROUS 3.6 mg/dL (2.5-4.9); PROTEIN - SERUM 7.2 g/dL (6.4-8.2)
[2016-12-05 05:48] LABS: POTASSIUM - SERUM 4.1 mmol/L (3.5-5.1)
--- NOTE | 2016-12-05 07:57 | NUR ---
LYING IN BED RESTING AT THIS TIME. NO ACUTE DISTRESS NOTED. PT RESPIRATIONS UNLABORED AND SHALLOW. WILL CONTINUE PLAN OF CARE.
--- NOTE | 2016-12-05 08:57 | NUR ---
NOTED PT REFUSED BREAKFAST, CALLED THE KITCHEN TO SEE IF CAN GET EGGS OVER EASY MADE PER PT REQUEST. RECIEVED. PT ATE A FEW BITES AND DID NOT WANT ANY MORE. WILL CONTINUE TO OFFER FOOD. WILL CONTINUE PLAN OF CARE.
--- NOTE | 2016-12-05 10:51 | NUR ---
LYING IN BED RESTING AT THIS TIME. AT BEDSIDE. NO ACUTE DISTRESS NOTED. RESPIRATIONS UNLABORED. AWAKENS WHEN SPOKEN TO THEN GOES BACK TO SLEEP. WILL CONTINUE PLAN OF CARE.
--- NOTE | 2016-12-05 12:59 | NUR ---
UP IN BED AWAKNE AT THIS TIME. OFFERED PT LUNCH, PT ATE FEW BITES OF MASHED POTATOES THEN STATED SHE DID NOT WANT ANYMORE. WILL CONTINUE PLAN OF CARE AND CONTINUE TO OFFER FOOD. FAMILY AT BEDSIDE. WILL CONTINUE PLAN OF CARE.
--- NOTE | 2016-12-05 14:52 | NUR ---
PT AWAKE IN BED AT THIS TIME. NONPRODUCTIVE COUGH NOTED. NO ACUTE DISTRESS NOTED. TURNED Q2H. WILL CONTINUE PLAN OF CARE.
--- NOTE | 2016-12-05 16:40 | NUR ---
NOTED PT HAS BEEN MORE LETHARGIC TODAY. HAS BEEN SLEEPING, AWAKENS WHEN SPOKEN TO THEN GOES BACK TO SLEEP. WHEN ASKING PT IF SHE IS OKAY SHE WILL STATE YES AND THAT SHE FEELS FINE. DR BAILON NOTIFIED. ORDERS PLACED. WILL CONTINUE TO OBSERVE.
[2016-12-05 17:30] LABS: ANION GAP 13.7 mmol/L (8-16); CALCIUM 9.1 mg/dL (8.5-10.1); CARBON DIOXIDE 25.1 mmol/L (21.0-32.0); POTASSIUM - SERUM 3.8 mmol/L (3.5-5.1)
--- NOTE | 2016-12-05 17:51 | NUR ---
TOTAL LINEN CHANGE PROVIDED AT THIS TIME. PT TURNS SELF VIA MODERATE ASSIST. NO ACUTE DISTRESS NOTED. WILL CONTINUE PLAN OF CARE.
--- NOTE | 2016-12-05 19:30 | NUR ---
ASSESSMENT COMPLETE. S1S2. PACEMAKER PRESENT. RR SHALLOW CRACKLES AUDIBLE IN MID LOBES; DIMINISHED BILATERALLY IN LOWER LOBES. FREQUENT NON PRODUCTIVE WEAK COUGH. PT PICKING AT SCABS IN NOSE AND MOUTH. CONFUSED TO SITUATION AND PLACE. AFEBRILE. PERRLA. ON OXYMIZER AT 6L O2 SAT 98%
--- NOTE | 2016-12-05 19:45 | NUR ---
PT REMOVED OXYMIZER O2 SATS DROPPED TO LOW 70%. REAPPLIED OXYMIZER O2 SATS RETURNED TO 97% AFTER A FEW DEEP BREATHS. EDUCATED PT ON IMPORTANCE OF LEAVING OXYGEN ON. PT HARD OF HEARING.
--- NOTE | 2016-12-05 22:00 | NUR ---
NO FAMILY OR VISITORS DURING VISITATION.
--- NOTE | 2016-12-05 22:30 | NUR ---
PT HAS REMOVED OXYMIZER X4 TIMES. O2 SATS DROP QUICKLY. ONCE OXYMIZER IS REPLACED; O2 SAT RETURNS QUICKLY. FREQUENT REORIENTATION AND EDUCATION; REORIENTING NOT EFFECTIVE.
--- NOTE | 2016-12-05 23:10 | NUR ---
REASSESSMENT COMPLETE. NO ACUTE CHANGES FROM PREVIOUS ASSESSMENT. WILL CONTINUE TO MONITOR AND FOLLOW POC.
[2016-12-06] VITALS (24 sets, daily range): BP systolic 104–131; BP diastolic 61–95
--- NOTE | 2016-12-06 01:30 | NUR ---
PT AWAKE; EYES OPEN. UPON ENTERING ROOM PT WAS PULLING AT OXYMIZER. DENIES ANY PAIN OR NEEDS AT THIS TIME.
--- NOTE | 2016-12-06 03:05 | NUR ---
REASSESSMENT COMPLETE. NO ACUTE CHANGES FROM PREVIOUS ASSESSMENT. PT CONTINUE TO TRY TO PULL OFF OXYIMIZER DESPITE REORIENTATION.
[2016-12-06 04:37] LABS: BASOPHILS 0.5 % (0-2); EOSINOPHILS 5.8 % (0-7); HEMATOCRIT 31.1 % (36.0-48.0); HEMOGLOBIN 9.9 g/dL (12-16); IMMATURE GRANULOCYTES 0.7 % (0-5); LYMPHOCYTES 8.7 % (15-50); MCH 28.7 pg (26.0-34.0); MCHC 31.8 g/dL (31.0-37.0); MCV 90.1 fL (80.0-100.0); MEAN PLATELET VOLUME 10.4 fL (7.4-10.4); MONOCYTES 9.4 % (2-11); NEUTROPHILS 74.9 % (40-80); PLATELET COUNT 249 10x3/uL (130-400); RBC 3.45 10x6/uL (4.00-5.40); RDW 16.8 % (11.5-14.5); WBC 15.5 10x3/uL (4.8-10.8)
[2016-12-06 04:50] LABS: ALBUMIN 2.4 g/dL (3.4-5.0); ANION GAP 14.6 mmol/L (8-16); BILIRUBIN - TOTAL 0.79 mg/dL (0.2-1.3); CARBON DIOXIDE 25.7 mmol/L (21.0-32.0); CREATININE - SERUM 3.2 mg/dL (0.6-1.3); POTASSIUM - SERUM 3.3 mmol/L (3.5-5.1)
--- NOTE | 2016-12-06 05:30 | NUR ---
NO VISITORS OR FAMILY DURING VISITATION.
--- NOTE | 2016-12-06 06:25 | NUR ---
DR. PICKARD AT BEDSIDE; SPOKE WITH .
--- NOTE | 2016-12-06 11:00 | NUR ---
REASSESSMENT COMPLETED. NO CHANGES NOTED. PT ON DIALYSIS TREATMENT AT THIS TIME. TEMP 97.1 AXILLARY. PT HAS EYES CLOSED. NO NEEDS AT THIS TIME. WILL CONTINUE TO MONITOR.
--- NOTE | 2016-12-06 11:02 | NUR ---
NUTRITION F/U CHART REVIEWED, PT ON HD. NURSING REPORTS PT REFUSED BREAKFAST THIS AM. WILL CONTINUE TO PROVIDE DIET, MONITOR PO INTAKE. RD FOLLOWING
--- NOTE | 2016-12-06 11:31 | NUR ---
* Is the patient Alert and Oriented? Yes 0 * How many steps to enter\exit or inside your home? 7 w/ rails 0 * PCP Dr. Flanagan 0 * Pharmacy [facility] on [address] 0 * Preadmission Environment Home with Family 0 * ADLs Partial Dependent 0 * Partial ADLs (Assistance needed) Ambulation 0 * Equipment Cane Nebulizer Rolling Walker 0 * Other Equipment Electric WC 0 * List name and contact numbers for known caregivers / representatives who currently or will assist patient after discharge: Spouse - Duke [phone] (cell) 0 * Additional services required to return to the preadmission environment? Yes 0 * Can the patient safely return to the preadmission environment? Yes 0 * Has this patient been hospitalized within the prior 30 days at any hospital? No Patient Name: NISHA MORALES Admission Status: ER Accout number: [id number] Admission Date: 12-01-2016 : 1940 Admission Diagnosis:SHORTNESS OF BREATH Attending: Evan Flanagan Current LOS: 5 Planned Disposition: Home with Home Health Primary Insurance: MEDICARE A & B Discharge Planning Comments: Patient somewhat confused, not answering questions or opening eyes on request. CM met with , Duke, to assess dc plans/needs. He states patient lives at home with him and was fairly independent with ADL's. She has a cane, walker, electric WC & nebulizer at home. She has had home health services in the past but unable to recall agency. At dc, he is interested in home health services if indicated. CM will follow & assist as needed. Gate Manager: Mena Beltran
--- NOTE | 2016-12-06 13:36 | NUR ---
DIALYSIS COMPLETED. 2L PULLED OFF. PT RESTING COMFORTABLY. BS 102. NO INSULIN GIVEN PER SLIDING SCALE. WILL CONTINUE TOMONITOR.
--- NOTE | 2016-12-06 13:51 | NUR ---
Mrs. Ross had bedside hemodialysis today via her left IJ Trialysis from 1026 until 1326. Average blood flow was 350 mls/minutes.et fluid removed was 2000 mls. Post vital signs were: B/P: 120/75, HR: 86, Temp: 97.3, Resps: 17. Stable treatment.
--- NOTE | 2016-12-06 15:15 | NUR ---
PT HAS REFUSED TO EAT ANYTHING TODAY. TRIED TO FEED HER JELLO. TOOK ONE SMALL BITE AND REFUSED THE REST. SHE'S ALSO NOT WANTING TO DRINK WATER OR OTHER FLUIDS. WILL CONTINUE TO ENCOURAGE DRINKING AND EATING.
--- NOTE | 2016-12-06 15:25 | NUR ---
PT NOT IN ROOM AT THIS TIME. WENT WITH IMAGING TO GET A CT OF HER CHEST.
--- NOTE | 2016-12-06 17:13 | NUR ---
FAMILY IN ROOM WITH PATIENT AT THIS TIME. PT REFUSING TO EAT DINNER. SHE ATE 2 BITES AND HAD 2 SIPS OF WATER. TOOK HER COREG WITH SMALL SIP OF WATER. REFUSES TO DRINK ANYMORE.
--- NOTE | 2016-12-06 19:00 | NUR ---
REPORT RECEIVED AND ASSESMENT COMPLETED. SEE FLOWSHEET FOR FULL DETAILS. PT IS VERY LETHARGIC. DIALYSIS YESTERDAY. 2 KG OFF. WILL MONITOR FOR CHANGES THROUGHOUT SHIFT
--- NOTE | 2016-12-06 21:00 | NUR ---
SPOKE WITH FAMILY REGARDING PATIENT CONDITION AND MEDICATIONS. PT REFUSED PO MEDS AT THIS TIME. WILL MONITOR
--- NOTE | 2016-12-06 23:00 | NUR ---
REASSESSMENT COMPLETED. SEE FLOWSHEET FOR FULL DETAILS. VSS. PT NO LONGER ON O2. SAT IS 96% ON ROOM AIR.
[2016-12-07] VITALS (24 sets, daily range): BP systolic 100–150; BP diastolic 60–89
--- NOTE | 2016-12-07 01:00 | NUR ---
NO CHANGES IN PATIENT STATUS AT THIS TIME. VSS. WILL CONTINUE TO MONITOR.
--- NOTE | 2016-12-07 03:00 | NUR ---
REASSESSMENT COMPLETED. SEE FLOWSHEET FOR FULL DETAILS. PT PULLED OUT LEFT FOREARM IV. FLUIDS GIVEN THROUGH IJ
[2016-12-07 04:10] LABS: BASOPHILS 0.5 % (0-2); EOSINOPHILS 4.9 % (0-7); HEMATOCRIT 35.3 % (36.0-48.0); HEMOGLOBIN 11.1 g/dL (12-16); LYMPHOCYTES 9.4 % (15-50); MCH 28.6 pg (26.0-34.0); MCHC 31.4 g/dL (31.0-37.0); MEAN PLATELET VOLUME 10.4 fL (7.4-10.4); MONOCYTES 10.3 % (2-11); NEUTROPHILS 73.9 % (40-80); PLATELET COUNT 279 10x3/uL (130-400); RBC 3.88 10x6/uL (4.00-5.40); RDW 16.7 % (11.5-14.5); WBC 16.7 10x3/uL (4.8-10.8)
[2016-12-07 04:14] LABS: HEPATITIS C ANTIBODY <0.1 (0.0-0.9)
[2016-12-07 04:18] LABS: INR 1.17 (0.85-1.17); PROTIME 14.8 SECONDS (11.6-15.0)
[2016-12-07 04:27] LABS: ALBUMIN 2.6 g/dL (3.4-5.0); ANION GAP 18.4 mmol/L (8-16); BILIRUBIN - TOTAL 0.7 mg/dL (0.2-1.3); CALCIUM 9.4 mg/dL (8.5-10.1); CARBON DIOXIDE 25.1 mmol/L (21.0-32.0); CREATININE - SERUM 2.6 mg/dL (0.6-1.3); PHOSPHOROUS 3.7 mg/dL (2.5-4.9); POTASSIUM - SERUM 3.5 mmol/L (3.5-5.1); PROTEIN - SERUM 7.7 g/dL (6.4-8.2)
--- NOTE | 2016-12-07 05:00 | NUR ---
NO CHANGES IN STATUS AT THIS TIME WILL MONITOR
--- NOTE | 2016-12-07 07:15 | NUR ---
PT AWAKE AND ALERT. CONFUSED AND DISORIENTED. SAYING "WHAT" AND "NO." DOES NOT FOLLOW DIRECTIONS. CURRENTLY ON ROOM AIR. O2 SAT 97%. BP 113/79 MAP 91, HR 87, RR 23, TEMPORAL TEMP 98. RADIAL PULSES 2+ EQUAL BILATERALLY, PEDAL PULSES 2+ EQUAL BILATERALLY. S1S2 AUDIBLE. EXPETORY WHEEZING AUDIBLE ON RIGHT UPPER LOBE. BS ACTIVE X 4. NORRIS DEPENDENT TO LEFT SIDE OF BED. CONCETRATED YELLOW URINE NOTED. BED LOW POSITION, CALL LIGHT IN REACH, SIDE RAILS UP X 2. BED ALARM ON. NO OTHER NEEDS AT THIS TIME.
--- NOTE | 2016-12-07 08:46 | NUR ---
PT TOOK MEDS WITH FEW SIPS OF WATER. BREAKFAST TRAY IN ROOM. ATTEMPED TO FEED HER. SHE REFUSED TO EAT.
--- NOTE | 2016-12-07 11:30 | NUR ---
PT BATHED AND COMPLETE BED LINEN CHANGE PROVIDE. PT TOLERATED WELL. PULLED UP AND REPOSTIONED ON HER RIGHT SIDE. NORRIS CARE PROVIDED AT THIS TIME. BED LOW POSITION, SIDE RAILS UP X 2. NO OTHER NEEDS AT THIS TIME.
--- NOTE | 2016-12-07 12:16 | NUR ---
LUNCH TRAY IN ROOM. ATTEMPTED TO FEED PT. PT REFUSES TO EAT. TURNS HEAD AWAY FROM FOOD AND SAYS "NO". PT REFUSES TEA AND WATER. ATTEMPTED TO APPLY MOISTURIZER ON LIPS BUT PT REFUSED BY TURNING HEAD AWAY. WILL CONTINUE TO OFFER NURISHEMENT AND FLUIDS. SPOKE WITH AND GAVE UPDATE. NO OTHER NEEDS AT THIS TIME.
--- NOTE | 2016-12-07 13:22 | NUR ---
IMAGING TRANSPORTED PT FOR A CT SCAN OF HEAD. PT DID NOT COOPERATE. UNABLE TO PERFORM CT SCAN. SPOKE WITH DR. PICKARD. HE SAID HE WAS OK WITH 0.5 MG OF ATIVAN. WILL CHECK WITH DR. OTOOLE OR DR. OVALLE.
--- NOTE | 2016-12-07 14:23 | NUR ---
SPOKE WITH DR. OTOOLE ABOUT PT BEING UNCOOPERATIVE FOR CT SCAN. HE ORDERED GEODON 10MG IM X ONE.
--- NOTE | 2016-12-07 16:32 | NUR ---
PT GOING FOR HEAD CT. GEODON 10MG IM GIVEN.
[2016-12-07 17:11] LABS: ANCA - ANTIMYELOPEROXIDASE <9.0 U/mL (0.0-9.0); ANCA - ANTIPROTEINASE 3 <3.5 U/mL (0.0-3.5); ANCA - ATYPICAL <1:20 titer (Neg:<1:20); ANCA - CYTOPLASMIC <1:20 titer (Neg:<1:20); ANCA - PERINUCLEAR <1:20 titer (Neg:<1:20)
[2016-12-08] VITALS (24 sets, daily range): BP systolic 99–146; BP diastolic 59–97
[2016-12-08 04:53] LABS: BASOPHILS 0.4 % (0-2); EOSINOPHILS 2.6 % (0-7); HEMOGLOBIN 11.6 g/dL (12-16); IMMATURE GRANULOCYTES 1.2 % (0-5); LYMPHOCYTES 9.1 % (15-50); MCH 29.2 pg (26.0-34.0); MCHC 32.2 g/dL (31.0-37.0); MCV 90.7 fL (80.0-100.0); MEAN PLATELET VOLUME 10.9 fL (7.4-10.4); MONOCYTES 9.2 % (2-11); NEUTROPHILS 77.5 % (40-80); PLATELET COUNT 290 10x3/uL (130-400); RBC 3.97 10x6/uL (4.00-5.40); RDW 16.8 % (11.5-14.5)
[2016-12-08 05:09] LABS: ALBUMIN 2.7 g/dL (3.4-5.0); ANION GAP 17.1 mmol/L (8-16); BILIRUBIN - TOTAL 0.65 mg/dL (0.2-1.3); CALCIUM 9.7 mg/dL (8.5-10.1); CARBON DIOXIDE 24.4 mmol/L (21.0-32.0); CREATININE - SERUM 3.2 mg/dL (0.6-1.3); POTASSIUM - SERUM 3.5 mmol/L (3.5-5.1); PROTEIN - SERUM 8.1 g/dL (6.4-8.2)
--- NOTE | 2016-12-08 09:00 | NUR ---
ADMINISTERED MEDS WITH NO COMPLICATION. PT DRANK ABOUT 350ML OF WATER AND MILK. REFUSED TO EAT REST OF BREAKFAST. ATTEMPTED TO FEED HER WELL. PT REFUSED. NO OTHER NEEDS AT THIS TIME. WILL CONTINUE TO MONITOR.
--- NOTE | 2016-12-08 10:05 | NUR ---
NUTRITION F/U CHART REVIEWED. PT VISIT. SPOUSE AT BEDSIDE ASSISTING WITH BREAKFAST. VERY LITTLE PO INTAKE. PRIMARILY MILK. PT NODS YES WHEN SPOUSE ASKS IF SHE IS FEELING BETTER. ENCOURAGED PT TRY TO INCREASE PO INTAKE. WILL CONTINUE TO PROVIDE MEALS, MONITOR PO INTAKE. RD FOLLOWING
--- NOTE | 2016-12-08 11:00 | NUR ---
REASSESSMENT COMPLETED. PT ON DIALYSIS AT THIS TIME. ASSESSMENT CHARTED IN ASSESSMENT SECTION. NO OTHER NEEDS AT THIS TIME.
--- NOTE | 2016-12-08 13:33 | NUR ---
Mrs. Ross had bedside hemodialysis today via her left IJ Trialysis. Poor blood flow due to very positional catheter. Average blood flow was 250 mls/minute. Net fluid rempoved was only 1500 mls due to pt having significant hypotension during treatment. Post vital signs were: B/P:126/78, HR:: 87, Temp: 97.1, Resps: 17.
--- NOTE | 2016-12-08 17:30 | NUR ---
CVL DRESSING CHANGE PROVIDED. PT TOLERATED WELL. RESTING COMFORTABLY. NO OTHER NEEDS.
--- NOTE | 2016-12-08 19:30 | NUR ---
ASSESSMENT COMPLETE. S1S2. RR SHALLOW UNLABORED; CLEAR BILATERALLY IN UPPER AND MID LOBES; DIMINISHED BILATERALLY IN LOWER LOBES. PERRLA. RADIAL AND PEDAL PULSES PALPATED. PT CONFUSED; UNABLE TO MAKE CONVERSATION. PICKING AT SCABS ON MOUTH AND NOSE. LT IJ; PATENT. MAKES CHANGES IN POSITION INDEPENDENTLY.
--- NOTE | 2016-12-08 20:25 | NUR ---
PT REFUSES TO TAKE MEDICATIONS; TOOK A SMALL DRINK OF WATER BUT REFUSES TO TAKE MEDICAITONS.
--- NOTE | 2016-12-08 21:00 | NUR ---
CALLED TO CHECK ON PT. UPDATE GIVEN. QUESTIONS ANSWERED. CONCERNS VOICED ABOUT PT NOT EATING AND GETTING NUTRITION.
--- NOTE | 2016-12-08 21:45 | NUR ---
ASIA GALLO, AT BEDSIDE. UPDATE GIVEN. QUESTIONS ANSWERED. NO CONCERNS VOICED AT THIS TIME.
--- NOTE | 2016-12-08 23:15 | NUR ---
REASSESSMENT COMPLETE. PT HAVING INCREASE IN MOANING; NO SENTENCES; NO VERBAL CONCERNS NOTED. DOES NOT FOLLOW COMMANDS; DO NOT KNOD OR ANSWER QUESTIONS. WILL CONTINUE TO MONITOR. PT DRANK 200ML; WATER.
[2016-12-09] VITALS (24 sets, daily range): BP systolic 107–173; BP diastolic 54–100
--- NOTE | 2016-12-09 01:30 | NUR ---
PT RESTING; EYES CLOSED. VSS. NO DISTRESS NOTED. WILL CONTINUE TO MONITOR.
--- NOTE | 2016-12-09 03:10 | NUR ---
REASSESSMENT COMPLETE. NO ACUTE CHANGES FROM PREVIOUS ASSESSMENT. VSS. SEE FLOW SHEET FOR DETAILS.
--- NOTE | 2016-12-09 04:59 | NUR ---
PT O2 SAT DROPPED TO 79%. PLACED ON 2L VIA NC. O2 SAT BACK TO 97% QUICKLY AFTER PLACED ON 2L.
[2016-12-09 05:01] LABS: BASOPHILS 0.6 % (0-2); EOSINOPHILS 1.7 % (0-7); HEMATOCRIT 37.9 % (36.0-48.0); HEMOGLOBIN 12.4 g/dL (12-16); IMMATURE GRANULOCYTES 1.6 % (0-5); MCHC 32.7 g/dL (31.0-37.0); MCV 88.8 fL (80.0-100.0); MEAN PLATELET VOLUME 11.1 fL (7.4-10.4); NEUTROPHILS 72.1 % (40-80); PLATELET COUNT 309 10x3/uL (130-400); RBC 4.27 10x6/uL (4.00-5.40); RDW 16.8 % (11.5-14.5)
[2016-12-09 05:18] LABS: ALBUMIN 2.9 g/dL (3.4-5.0); ANION GAP 21.5 mmol/L (8-16); BILIRUBIN - TOTAL 0.7 mg/dL (0.2-1.3); CARBON DIOXIDE 21.3 mmol/L (21.0-32.0); CREATININE - SERUM 3.5 mg/dL (0.6-1.3); PHOSPHOROUS 4.8 mg/dL (2.5-4.9); POTASSIUM - SERUM 3.8 mmol/L (3.5-5.1); PROTEIN - SERUM 8.4 g/dL (6.4-8.2)
[2016-12-09 05:42] LABS: INR 1.26 (0.85-1.17); PROTIME 15.7 SECONDS (11.6-15.0)
--- NOTE | 2016-12-09 07:00 | NUR ---
REPORT RECEIVED FROM OFF GOING NURSE. SEE FLOW SHEET FOR ASSESSMENT. PT MOANING AND GROANING. UNABLE TO FOLLOW COMMANDS. WHENEVER ASKED IF SHE IS HURTING, SHE STOPS MOANING AND GROANING AND STARES BUT NEVER ANSWERS. VSS. NO FAMILY AT BED SIDE. CALL LIGHT IN REACH. WILL CONT POC.
--- NOTE | 2016-12-09 08:00 | NUR ---
DR OVALLE AT BED SIDE. STILL NOT FOLLOWING COMMANDS. DR OVALLE SPOKE WITH .
--- NOTE | 2016-12-09 09:45 | NUR ---
CONCENT FOR LUMBAR PUNTURED SIGNED BY . PT REMAINS CONFUSED AND MOANING BECOMING LESS FREQUENT.
--- NOTE | 2016-12-09 09:54 | NUR ---
NUTRITION F/U CHART REVIEWED. CURRENT HD. NURSING REPORTS ON PO INTAKE BREAKFAST. DOES STATE PT MORE ALERT AND HOPES SHE WILL SHOW MORE INTEREST IN LUNCH. WILL CONTINUE TO PROVIDE DIET, MONITOR PT PROGRESS. RD FOLLOWING
--- NOTE | 2016-12-09 10:00 | NUR ---
DIALYSIS AT BED SIDE. PT TOLERATING DILYSIS WELL.
--- NOTE | 2016-12-09 10:30 | NUR ---
PT REMAINS ON DIALYSIS. PT BECAME DIPHORETIC. FSBS 116 AND VSS. WILL CONT TO MONITOR.
--- NOTE | 2016-12-09 11:00 | NUR ---
DIALYSIS NURSE DONE WITH PT. NO FLUID WAS REMOVED BUT IT WAS CLEANSED PER DIALYSIS NURSE. PT CONFUSED BUT IS MUCH MORE ALERT AND ABLE TO FOLLOW COMANDS. AT BED SIDE. BREATHING NORMAL AND UNLABORED. CALL LIGHT IN REACH. WILL CONT POC.
--- NOTE | 2016-12-09 12:00 | NUR ---
PT ATE APPROXIMITLY 6 BITES OF MASHED POTATOES AND DRANK AN ENTIRE CAN OF NEPRO. PT ALERT BUT REMAINS CONFUSED.CALL LIGHT IN REACH. WILL CONT POC
--- NOTE | 2016-12-09 13:51 | NUR ---
TRIALYSIS CATHETER DRESSING CHANGED BECAUSE IT WAS COMING UNDONE. C/D/I.
--- NOTE | 2016-12-09 15:15 | NUR ---
LEFT WITH IR FOR LP VIA BED. VSS. 0 S/SX OF DISTRESS/DISCOMFORT NOTED. AWARE.
--- NOTE | 2016-12-09 16:30 | NUR ---
IR RETURNED PT VIA BED. PT DENIES PAIN. STILL VERY CONFUSED BUT REMAINS TO FOLLOW COMMANDS. SPEAKING IN CLEAR SENTENCES HOWEVER SHE HAS A VERY DISORGANZED THOUGHT PROCESS. CALL LIGHT IN REACH. WILL CONT POC
--- NOTE | 2016-12-09 17:46 | NUR ---
PT VOMITED. HOB ELEVATED AND BASIN PROVIDED. NO S/SX OF ASPIRATION NOTED. FULL LINEN CHANGE AND GOWN CHANGED. DR MAN PAGED. ZOFRAN ORDER OBTAINED.
[2016-12-09 18:02] LABS: LYMPH - CSF 40 % (40-80); MONO - CSF 1 % (15-45); NEUT - CSF 59 % (0-6); RBC - CSF 1153 cmm (0-0)
[2016-12-09 18:03] LABS: APPEARANCE - CSF CLEAR
[2016-12-09 18:09] LABS: LYMPH - CSF 20 % (40-80); NEUT - CSF 80 % (0-6)
[2016-12-09 18:10] LABS: APPEARANCE - CSF BLOODY; RBC - CSF 9920 cmm (0-0)
[2016-12-09 18:14] LABS: PROTEIN - CSF 53 MG/DL (12-60)
--- NOTE | 2016-12-09 18:39 | NUR ---
RESTING IN BEDWITH NO ISSUES. CALL LIGHT IN REACH. NO C/O NAUSEA AT THIS TIME. BREATHING NORMAL AND UNLABORED. WILL CONT POC.
[2016-12-09 18:40] LABS: GLUCOSE - CSF 127 MG/DL (40-75)
--- NOTE | 2016-12-09 19:15 | NUR ---
SHIFT ASSESSMENT COMPLETE, SEE FLOWSHEET FOR DETAILS.
--- NOTE | 2016-12-09 21:05 | NUR ---
NIGHT MEDS GIVEN WITHOUT PROBLEM. PATIENT STILL CONFUSED, BUT WILL FOLLOW COMMANDS.
--- NOTE | 2016-12-09 22:00 | NUR ---
PATIENT YELLING OUT "IT'S TOO LOUD" WHILE HAVING TV SPEAKER NEXT TO EAR. TURNED VOLUME DOWN FOR PATIENT, REPORTS SATISFACTION. STILL CONFUSED TO PLACE, TIME, AND SITUATION.
--- NOTE | 2016-12-09 23:10 | NUR ---
REASSESSMENT COMPLETE, NO ACUTE CHANGES. VSS.
[2016-12-10] VITALS (24 sets, daily range): BP systolic 83–155; BP diastolic 58–87
--- NOTE | 2016-12-10 01:05 | NUR ---
RESTING WITH EYES CLOSED, RR EVEN AND NONLABORED. VSS.
--- NOTE | 2016-12-10 03:05 | NUR ---
REASSESSMENT COMPLETE, SEE FLOWSHEET FOR DETAILS. VSS.
--- NOTE | 2016-12-10 05:00 | NUR ---
VSS, PATIENT CONFUSED TO TIME, PLACE, AND SITUATION. WILL OBEY COMMANDS.
[2016-12-10 05:22] LABS: BASOPHILS 0.3 % (0-2); EOSINOPHILS 0.9 % (0-7); HEMATOCRIT 38.7 % (36.0-48.0); HEMOGLOBIN 12.5 g/dL (12-16); IMMATURE GRANULOCYTES 1.3 % (0-5); LYMPHOCYTES 10.6 % (15-50); MCH 28.8 pg (26.0-34.0); MCHC 32.3 g/dL (31.0-37.0); MCV 89.2 fL (80.0-100.0); MEAN PLATELET VOLUME 11.3 fL (7.4-10.4); MONOCYTES 8.8 % (2-11); NEUTROPHILS 78.1 % (40-80); PLATELET COUNT 317 10x3/uL (130-400); RBC 4.34 10x6/uL (4.00-5.40); RDW 16.7 % (11.5-14.5); WBC 17.2 10x3/uL (4.8-10.8)
[2016-12-10 05:39] LABS: ALBUMIN 2.8 g/dL (3.4-5.0); ANION GAP 18.1 mmol/L (8-16); BILIRUBIN - TOTAL 0.46 mg/dL (0.2-1.3); CALCIUM 9.7 mg/dL (8.5-10.1); CARBON DIOXIDE 26.7 mmol/L (21.0-32.0); CREATININE - SERUM 4.2 mg/dL (0.6-1.3); POTASSIUM - SERUM 3.8 mmol/L (3.5-5.1); PROTEIN - SERUM 8.2 g/dL (6.4-8.2)
--- NOTE | 2016-12-10 11:00 | NUR ---
NO CHANGE NOTED
--- NOTE | 2016-12-10 12:11 | NUR ---
Mrs. Ross had bedside hemodialysis today via her Left IJ Trialysis catheter. Average blood flow was 350 mls/minute. Pt had 39 minutes left on treatment and she clotted her dialyzer. Unable to return only part of blood. PHOSPHORIC ACID OPERATOR notified and will re attemp dialysis on her next treatment day with an increase of heparin dosing. Net fluid removed was 1700 mls. Post vital signs were: B/P: 101/84, HR: 103, Temp: 97.3, Resps: 19.
--- NOTE | 2016-12-10 15:00 | NUR ---
NO CHANGE NOTED
--- NOTE | 2016-12-10 19:00 | NUR ---
SHIFT ASSESSMENT COMPLETE, SEE FOR DETIALS. VSS. TURNED, DENIES FURTHER NEED.
--- NOTE | 2016-12-10 21:00 | NUR ---
NIGHT MEDS GIVEN. PROBLEM SWALLOWING NOTED. DID GET MEDS DOWN.
--- NOTE | 2016-12-10 23:05 | NUR ---
REASSESSMENT COMPLETE, NO CHANGES NOTED.
[2016-12-11] VITALS (17 sets, daily range): BP systolic 92–140; BP diastolic 71–100
--- NOTE | 2016-12-11 01:00 | NUR ---
PATIENT STILL CONFUSED, TALKING OUT LOUD TO HERSELF. VSS.
--- NOTE | 2016-12-11 03:00 | NUR ---
NO CHANGES, VSS.
--- NOTE | 2016-12-11 05:00 | NUR ---
NO CHANGES, VSS.
[2016-12-11 05:11] LABS: HEMATOCRIT 40.4 % (36.0-48.0); HEMOGLOBIN 13.4 g/dL (12-16); MCH 29.1 pg (26.0-34.0); MCHC 33.2 g/dL (31.0-37.0); MCV 87.8 fL (80.0-100.0); MEAN PLATELET VOLUME 11.3 fL (7.4-10.4); PLATELET COUNT 327 10x3/uL (130-400); RDW 16.6 % (11.5-14.5); WBC 25.7 10x3/uL (4.8-10.8)
[2016-12-11 05:16] LABS: INR 1.11 (0.85-1.17); PROTIME 14.2 SECONDS (11.6-15.0)
[2016-12-11 05:30] LABS: ANION GAP 20.2 mmol/L (8-16); BILIRUBIN - TOTAL 0.42 mg/dL (0.2-1.3); CALCIUM 10.1 mg/dL (8.5-10.1); CARBON DIOXIDE 24.7 mmol/L (21.0-32.0); CREATININE - SERUM 4.9 mg/dL (0.6-1.3); PHOSPHOROUS 6.6 mg/dL (2.5-4.9); POTASSIUM - SERUM 3.9 mmol/L (3.5-5.1)
[2016-12-11 05:39] LABS: BASOPHILS 1 % (0-2); EOSINOPHILS 1 % (0-7); LYMPHOCYTES 5 % (15-50); MONOCYTES 4 % (2-11); NEUTROPHILS 87 % (40-80); PLATELET ESTIMATE NORMAL; PLATELET MORPHOLOGY GIANT PLTS PRESENT
--- NOTE | 2016-12-11 11:00 | NUR ---
CHANGES PER NURSES NOTES
--- NOTE | 2016-12-11 14:23 | NUR ---
PATIENT BECOMES VIOLENT AND EXTREMELY UPSET IF THIS NURSE EVEN LOOKS INTO ROOM, INFORMED CHARGE NURSE OF THIS AND THE PATIENT ALSO PULLED OUT LEFT SUBCLAVIAN TRIALYSIS PORT. IT IS NOT THERAPUTIC FOR THIS NURSE TO GO INTO HER ROOM .
--- NOTE | 2016-12-11 15:00 | NUR ---
CHANGES PER NURSES NOTES
--- NOTE | 2016-12-11 15:47 | NUR ---
PATIENT HAS PULLED OUT MYRNA, INFORMED CHARGE NURSE IT IS DETRIMENTAL TO HER HEALTH IF I EVEN SHOW MY FACE TO HER, SHE BECOMES VIOLENT AND DESTRUCTIVE, EVEN HAD A SHORT RUN OF V-TACH UPON SITE OF ME, SHE STATES, "GET THAT BASTERD OUT OF HERE, FUCKING KILL HIM."
--- NOTE | 2016-12-11 16:05 | NUR ---
RENAL AND SURGERY NOTIFIED OF CURRENT STATUS, RENAL STATES IV MAY REMAIN OUT AT PRESENT AND WILL BE REEVALUATED IN THE AM HD IS IN QUESTION. PATIENT WILL NOT ALLOW ANY STAFF TO PLACE BP, TELEMETRY, ANYTHING, AND STILL BECOMES VIOLENT UPON SIGHT OF THIS NURSE.
--- NOTE | 2016-12-11 16:59 | NUR ---
PATIENT SEES ME FROM A DISTANCE AND STARTS YELLING "DON'T LET THAT BASTARD IN HERE." THIS NURSE HAS NOT GONE BACK INTO HER ROOM.
--- NOTE | 2016-12-11 17:58 | NUR ---
TWO FEMALE NURSES WERE ABLE TO CARE FOR PATIENT WITHOUT GREAT REPRECUSSION.
[2016-12-11 19:08] LABS: AFB SPECIMEN PROCESSING Not Indicated (())
--- NOTE | 2016-12-11 19:30 | NUR ---
RECEIVED CARE OF PT, ASSESSMENT PER FLOWSHEET. HR ST, V-PACED ON CM, PT ORIENTED TO SELF ONLY, ATTEMPTS TO REORIENT UNSUCCESSFUL, BED LOW, ALARM ON, WILL MONITOR CLOSELY.
--- NOTE | 2016-12-11 20:00 | NUR ---
PT PLACED IN BILATERAL SOFT WRIST RESTRAINTS PER ORDER UNABLE TO KEEP SAFE OR CARE FOR PT. ANY ATTEMPTS TO REORIENT ARE MET WITH AGGRESSIVE VERBAL RESPONSE, ANY ATTEMPT TO ASSESS PT ATTEMPTS TO BITE AND STRUCK BOTH RN'S IN ROOM. UPON TRYING TO REORIENT PT TO SITUATION PT STATES, "NO YOU FUCKING BITCH, YOUR NAME IN [place] AND YOU CAN'T LET THOSE CHILDREN ." ANY AND ALL ATTEMPTS TO REORIENT ARE UNSUCCESSFUL, WILL MONITOR CLOSELY.
--- NOTE | 2016-12-11 23:30 | NUR ---
REASSESSMENT PER FLOWSHEET, PT REMAINS AGGRESSIVE AND DISORIENTED, CONTINUAL TALKING NOTED-CARRYING ON BOTH SIDES OF CONVERSATION WITH HERSELF, WILL CONT POC.
[2016-12-12] VITALS (24 sets, daily range): BP systolic 98–147; BP diastolic 60–108
--- NOTE | 2016-12-12 01:32 | NUR ---
PT REMAINS AGGRESSIVE UPON ANY ATTEMPTS TO REORIENT, REFUSES TO OPEN MOUTH FOR ORAL CARE, STATES,"THE SPIDERS ARE HERE [place]." POSITIONED FOR COMFORT SUPPORTED WITH PILLOWS, BILATERAL SOFT WRIST RESTRAINTS RESECURED, VSS.
--- NOTE | 2016-12-12 04:00 | NUR ---
NO VISITORS PRESENT AT THIS TIME, PT CONTINUALLY TALKING TO AND ANSWERING/ARGUING WITH SELF, REORIENTATION REMAINS UNSUCCESSFUL.
[2016-12-12 04:10] LABS: BASOPHILS 0.5 % (0-2); EOSINOPHILS 0.4 % (0-7); HEMATOCRIT 39.7 % (36.0-48.0); HEMOGLOBIN 13.5 g/dL (12-16); IMMATURE GRANULOCYTES 1.4 % (0-5); LYMPHOCYTES 12.3 % (15-50); MCH 29.3 pg (26.0-34.0); MCV 86.3 fL (80.0-100.0); MEAN PLATELET VOLUME 11.4 fL (7.4-10.4); MONOCYTES 9.2 % (2-11); NEUTROPHILS 76.2 % (40-80); PLATELET COUNT 351 10x3/uL (130-400); RDW 16.6 % (11.5-14.5); WBC 25.9 10x3/uL (4.8-10.8)
[2016-12-12 04:22] LABS: ALBUMIN 3.3 g/dL (3.4-5.0); ANION GAP 26.8 mmol/L (8-16); BILIRUBIN - TOTAL 0.41 mg/dL (0.2-1.3); CALCIUM 10.3 mg/dL (8.5-10.1); CARBON DIOXIDE 19.2 mmol/L (21.0-32.0); PROTEIN - SERUM 8.4 g/dL (6.4-8.2)
[2016-12-12 04:24] LABS: CREATININE - SERUM 6.9 mg/dL (0.6-1.3)
[2016-12-12 11:03] LABS: APPEARANCE CLOUDY (CLEAR); COLOR YELLOW (YELLOW); GLUCOSE 50 mg/dL (NEGATIVE); KETONE NEGATIVE (NEGATIVE); NITRITE NEGATIVE (NEGATIVE); PROTEIN 3+ mg/dL (NEGATIVE)
[2016-12-12 11:04] LABS: BILIRUBIN NEGATIVE (NEGATIVE); UROBILINOGEN NORMAL (NORMAL)
[2016-12-12 11:11] LABS: BACTERIA MODERATE /hpf (NONE SEEN); EPITHELIAL CELLS 0-5 /hpf (0-5); RED CELLS - URINE 0-5 /hpf (0-5)
[2016-12-12 11:12] LABS: YEAST >1+ /hpf (NONE SEEN)
--- NOTE | 2016-12-12 16:10 | NUR ---
0700 REVEIVED PT IN BED, CONTINUES TO TALK TO SELF AND BECOMES VERY AGITATED WHEN STAFF ENTERS ROOM. NO DISTRESS NOTED, CONFUSED ALERT TO SELF ONLY. BECOMES COMBATIVE WHEN YOU ATTEMPT TO TOUCH HER. SEE INITAIL ASSESSMENT. REFUSES TO EAT BREAKFAST. 0800 RENAL DINING ROOM CAPTAIN IN UNIT AND SPEAKS WITH SURGEON ABOUT REPLACING TRIALYSIS CATH ORDERED ANTIBIOTICS AND WANTS UA BEFORE ABX STARTED, ORDER FOR ATIVAN AND HALDOL PRN 0900 ATIVAN 2MG IM GIVEN, PT VERY AGITATED AND COMBATIVE WITH ANY STAFF AND CONTINUES TO HAVE CONVERSATION WITH SELF WHEN IN ROOM ALONE 1130 TRIALYSIS CATH IN AND CXR OBTAINED, PT TOLERATED WELL, COMBATIVE AND BILIGERANT TOWARDS STAFF AND MD 1200 PT FINALLY SLEEPING AND VS STABLE, ABX GIVEN, NO DISTRESS NOTED, SPOKE WITH FAMILY QUESTIONS ANSWERED 1430 FAMILY IN UNIT QUESTIONS ANSWERED, STATED THEY WERE NOT GOING TO WAKE HER UP AND WANTED HER TO REST LONG SHE COULD 1600 REMAINS ASLEEP NO DISTRESS NOTED, VSS
--- NOTE | 2016-12-12 19:30 | NUR ---
REPORT RECIEVED ASSESSMENT COMPLETED. PT HAS HAD SOME CONFUSION AND CAN ANSWER 1 OUT OF THREE QUESTION BUT CAN NOT ANSWER ANY MORE. SEE FLOW SHEET FOR FURTHER DETAILS. PT POSITIONED FOR COMFORT WILL CONTINUE TO MONITOR.
--- NOTE | 2016-12-12 21:00 | NUR ---
NO VISITORS AT THIS TIME. FAMILY HAS CALLED AND SECURED THE PASSWORD AND UPDATE WAS GIVEN WILL CONTINUE TO MONITOR PT.
--- NOTE | 2016-12-12 23:00 | NUR ---
REASSESSMENT COMPLETED. NO ACUTE CHANGES AT THIS TIME. BED IN LOW POSITION CALL LIGHT IN REACH. WILL CONTINUE TO MONITOR PT.
[2016-12-13] VITALS (24 sets, daily range): BP systolic 86–139; BP diastolic 49–88
--- NOTE | 2016-12-13 01:00 | NUR ---
PT RESTING COMFORTABLY WITH NO SIGNS OF DISTRESS. VSS. WILL CONTINUE TO MONITOR PT.
--- NOTE | 2016-12-13 03:00 | NUR ---
REASSESSMENT COMPLETED. NO ACUTE CHANGES AT THIS TIME. SEE FLLOW SHEET FOR FURTHER DETAILS. WILL CONTINUE TO MONITOR.
--- NOTE | 2016-12-13 05:00 | NUR ---
PT RESTING IN BED WITH NO SIGNS OF DISTRESS. VSS. POSITIONED FOR COMFORT WILL CONTINUE TO MONITOR PT.
[2016-12-13 05:27] LABS: BASOPHILS 0.8 % (0-2); EOSINOPHILS 1.8 % (0-7); HEMATOCRIT 40.8 % (36.0-48.0); HEMOGLOBIN 13.4 g/dL (12-16); IMMATURE GRANULOCYTES 1.4 % (0-5); LYMPHOCYTES 7.1 % (15-50); MCH 28.9 pg (26.0-34.0); MCHC 32.8 g/dL (31.0-37.0); MCV 87.9 fL (80.0-100.0); MONOCYTES 7.4 % (2-11); NEUTROPHILS 81.5 % (40-80); RBC 4.64 10x6/uL (4.00-5.40); RDW 16.8 % (11.5-14.5); WBC 19.8 10x3/uL (4.8-10.8)
[2016-12-13 05:28] LABS: PLATELET COUNT 221 10x3/uL (130-400)
[2016-12-13 06:59] LABS: INR 1.25 (0.85-1.17); PROTIME 15.6 SECONDS (11.6-15.0)
[2016-12-13 07:13] LABS: ALBUMIN 2.9 g/dL (3.4-5.0); ANION GAP 27.3 mmol/L (8-16); BILIRUBIN - TOTAL 0.52 mg/dL (0.2-1.3); CALCIUM 8.8 mg/dL (8.5-10.1); POTASSIUM - SERUM 4.3 mmol/L (3.5-5.1); VANCOMYCIN - RANDOM 14.6 ug/mL (10.0-20.0)
[2016-12-13 07:19] LABS: PHOSPHOROUS 11.4 mg/dL (2.5-4.9)
--- NOTE | 2016-12-13 07:25 | NUR ---
DR PICKARD HERE. PHOSE LEVEL CRITICAL HIGH. PHOSLO ORDERED BY DR PICKARD.
--- NOTE | 2016-12-13 10:11 | NUR ---
NUTRITION F/U PT CURRENTLY SLEEPING. NURSING REPORTS PT WITH < 25% INTAKE BREAKFAST. WILL CONTINUE TO PROVIDE DIET, MONITOR INTAKE. RD FOLLOWING
[2016-12-13 13:13] LABS: FUNGUS STAIN Final report (())
[2016-12-13 16:12] LABS: IGGS - IGG INDEX CSF 0.7 (0.0-0.7); IGGS - IGG SYNTHESIS RATE CSF 9.7 mg/day (-9.9 TO +3.3)
--- NOTE | 2016-12-13 19:00 | NUR ---
REPORT RECIEVED, SHIFT ASSESSMENT COMPLETE, PLEASE SEE FLOW SHEETS FOR DEATILS. PLEASENTLY CONFUSED ATT, ALERT TO SELF ONLY. SPEECH SLIGHTLY SLURRED THOUGH MOUTH WAS DRY, GAVE ORAL CARE. REORIENTED TO PLACE/TIME/SITUATION. PUPILS 4MM AND BRISK. LUNGS DIMINISHED THROUGHOUT LUNG DICKERSON. RR EVEN AND UNLABORED. S1S2 HEARD AND NSR NOTED ON CM. PPP. BS ACTIVE X4. NORRIS IN PLACE DRAINING VIA GRAVITY AND OFF OF FLOOR. SMALL AMOUNT OF LIGHT YELLOW AND CLOUDY URINE PRESENT. MOVES ALL EXTREMETIES ON OWN AND MOVES AROUND IN BED ON OWN. DENEIS ANY PAIN/NEEDS ATT. BED LOW AND LOCKED, CALL LIGHT IN REACH. WILL CPOC.
--- NOTE | 2016-12-13 21:00 | NUR ---
TOLERATED PO MEDS, DENIES PAIN/NEEDS ATT. BED LOW AND LOCKED, CALL LIGHT IN REACH. VSS, WILL CPOC.
--- NOTE | 2016-12-13 21:38 | NUR ---
SPOKE WITH AND GAVE UPDATE, HE WAS CONCERNED THAT PATIENT WAS NOT TALKING COHERENTLY AT RECENT VISIT AND WAS CALLING HIM NAMES. SUGGESTED THAT HE SPEAK WITH A DOCTOR ABOUT PATIENT STAUS AND HE ASKED THAT THEY CALL HIM BECAUSE HE CAN NEVER CATCH THEM WHEN HE IS HERE TO VISIT. INFORMED HIM IF A DOCTOR CAME IN WHILE I WAS HERE I WOULD ASK THEM TO CALL HIM AND WOULD PASS IT ON TO THE NEXT NURSE WELL. HE HAD NO OTHER QUESTIONS ATT.
--- NOTE | 2016-12-13 22:35 | NUR ---
REASSESSMENT COMPLETE, PLEASE SEE FLOW SHEETS FOR DETAILS. PLEASENTLY CONFUSED ATT, ALERT TO SELF ONLY. SPEECH SLIGHTLY SLURRED THOUGH MOUTH WAS DRY, GAVE ORAL CARE. REORIENTED TO PLACE/TIME/SITUATION. PUPILS 4MM AND BRISK. LUNGS DIMINISHED THROUGHOUT LUNG DICKERSON. RR EVEN AND UNLABORED. S1S2 HEARD AND NSR NOTED ON CM. PPP. BS ACTIVE X4. NORRIS IN PLACE DRAINING VIA GRAVITY AND OFF OF FLOOR. SMALL AMOUNT OF LIGHT YELLOW AND CLOUDY URINE PRESENT. MOVES ALL EXTREMETIES ON OWN AND MOVES AROUND IN BED ON OWN. DENEIS ANY PAIN/NEEDS ATT. BED LOW AND LOCKED, CALL LIGHT IN REACH. WILL CPOC.
[2016-12-14] VITALS (24 sets, daily range): BP systolic 80–124; BP diastolic 39–94
--- NOTE | 2016-12-14 01:00 | NUR ---
SLEEPING, VSS, BED LOW AND LOCKED, CALL LIGHT IN REACH, ONLY HAS ON ONE RESTRAINTS ATT. WILL CPOC.
--- NOTE | 2016-12-14 03:00 | NUR ---
REASSESSMENT COMPLETE, PLEASE SEE FLOW SHEETS FOR DETAILS. DENIES PAIN/NEEDS ATT. NO CHANGES FROM PREVIOUS ASSESSMENTS TO NOTE. BED LOW AND LOCKED, CALL LIGHT IN REACH. VSS, WILL CPOC.
--- NOTE | 2016-12-14 03:10 | NUR ---
NORRIS CARE PROVIDED ATT.
--- NOTE | 2016-12-14 04:59 | NUR ---
SLEEPING, VSS, BED LOW AND LOCKED, CALL LIGHT IN REACH. WILL CPOC.
[2016-12-14 06:09] LABS: BASOPHILS 0.6 % (0-2); EOSINOPHILS 3.8 % (0-7); HEMOGLOBIN 11.9 g/dL (12-16); LYMPHOCYTES 10.5 % (15-50); MCHC 33.1 g/dL (31.0-37.0); MCV 87.8 fL (80.0-100.0); MEAN PLATELET VOLUME 11.2 fL (7.4-10.4); MONOCYTES 8.8 % (2-11); NEUTROPHILS 75.3 % (40-80); PLATELET COUNT 260 10x3/uL (130-400); RDW 16.4 % (11.5-14.5); WBC 15.7 10x3/uL (4.8-10.8)
[2016-12-14 07:00] LABS: ALBUMIN 2.7 g/dL (3.4-5.0); BILIRUBIN - TOTAL 0.5 mg/dL (0.2-1.3); CALCIUM 8.5 mg/dL (8.5-10.1); CREATININE - SERUM 7.7 mg/dL (0.6-1.3); PROTEIN - SERUM 7.2 g/dL (6.4-8.2); VANCOMYCIN - RANDOM 11.3 ug/mL (10.0-20.0)
[2016-12-14 07:08] LABS: ANION GAP 25.5 mmol/L (8-16); POTASSIUM - SERUM 3.5 mmol/L (3.5-5.1)
--- NOTE | 2016-12-14 11:14 | OP ---
PATIENT NAME: NISHA MORALES MEDICAL RECORD: [id number] LOCATION:D.[facility] D.[id number] ADMISSION DATE:12/01/16 SURGEON: JAYLYN LUNA MD DATE OF OPERATION: 12/12/2016 PREOPERATIVE DIAGNOSES: 1. Need for IV access. 2. Rrene-qx-kjprukc renal failure. 3. Encephalopathy. 4. CHF, undifferentiated. 5. Diabetes mellitus. 6. Anemia. POSTOPERATIVE DIAGNOSES: 1. Need for IV access. 2. Ssmfm-vk-mvaeiuc renal failure. 3. Encephalopathy. 4. CHF, undifferentiated. 5. Diabetes mellitus. 6. Anemia. PROCEDURE: Right IJ 15-cm Trialysis catheter placement with ultrasound guidance. SURGEON: Jaylyn Luna MD REPORT OF PROCEDURE: The patient's right neck was prepped and draped in sterile fashion. A 5 cc of 1% lidocaine was infused into the subcutaneous tissues. A needle was used to cannulate the right internal jugular vein under ultrasound guidance. A wire was then placed with ease. The dilator was placed over the wire. The 15-cm Trialysis catheter was then advanced over the wire with ease. The catheter aspirated and nonpulsatile and dark blood flushed easily in all 3 ports. This was sutured into place with 4-0 nylons and dressed appropriately. COMPLICATIONS: None. CONDITION: Stable. ANESTHESIA: Local. BLOOD LOSS: Minimal. Procedure done at the bedside. TRANSINT:[id number] Voice Confirmation ID: [id number] DOCUMENT ID: [id number] JAYLYN LUNA MD at 1114 CC: [id number] DICTATION DATE: 12/12/16 1024 MATHEMATICS FACULTY MEMBER: 12/12/16 1121 ADM IN [facility] [address] [place] [address]
--- NOTE | 2016-12-14 14:20 | NUR ---
PT SLUMPS TO BOTTOM OF BED AND IS ABLE TO REACH CVL. WRIST RESTRAINTS TAKEN OFF AND MITTENS PLACED ON BUE TO PREVENT PT FROM GETTING HER LINES.
--- NOTE | 2016-12-14 19:30 | NUR ---
REPORT RECEIVED AND CARE ASSUMED. PT NOTED TO BE CONFUSED AND ALERT. VERY BISHOP PAIUTE MAKING COMMUNICATION DIFFICULT. PT NOTED TO BE WEARING BILAT MITTENS DUE TO HER REMOVING LINES IE THE F/C THAT SHE REPORTEDLY PULLED OUT. WILL CLOSELY MONITOR. BED IS IN VIEW OF NURSES STATION. PT IS BEING MONITORED PER STANDARD ICU PROTOCOL WITH ALL ALARMS SET AND VERIFIED. PILLOWS USED TO PROVIDE SUPPORT AND TO RELIEVE PRESSURE.
--- NOTE | 2016-12-14 21:00 | NUR ---
PT GIVEN COMPLETE BED BATH AND ALL LINENS CHANGED. PT TOLERATED WELL
--- NOTE | 2016-12-14 21:21 | NUR ---
CALL RECEIVED FROM SPOUSE SECURITY WORD CONFIRMED UPDATE GIVEN AND QUESTIONS ANSWERED
--- NOTE | 2016-12-14 21:30 | NUR ---
MEDS GIVEN RECORDED ON APR. CRUSHED WITH APPLESAUCE. PT TOLERATED WELL NO SWALLOWING DIFFICULTY
--- NOTE | 2016-12-14 21:58 | NUR ---
F/C REPLACED WITH 16F INDWELLING NORRIS WITH STERILE TECHNIQUE X 1 ATTEMPT. IMMEDIATE RETURN OF CLEAR YELLOW URINE NOTED. SAMPLE COLLECTED PER PROTOCOL WITH F/C INSERTION AND SENT FOR ANALYSIS. PT TOLERATED WELL
[2016-12-14 22:34] LABS: APPEARANCE HAZY (CLEAR); BILIRUBIN NEGATIVE (NEGATIVE); COLOR YELLOW (YELLOW); GLUCOSE NEGATIVE (NEGATIVE); KETONE NEGATIVE (NEGATIVE); NITRITE NEGATIVE (NEGATIVE); PROTEIN TRACE mg/dL (NEGATIVE); UROBILINOGEN NORMAL (NORMAL)
[2016-12-14 22:35] LABS: BACTERIA MANY /hpf (NONE SEEN); RED CELLS - URINE 25-50 /hpf (0-5)
[2016-12-15] VITALS (24 sets, daily range): BP systolic 97–134; BP diastolic 42–108
--- NOTE | 2016-12-15 03:15 | NUR ---
RADIOLOGY TECHS AT BEDSIDE FOR AM PCXR
--- NOTE | 2016-12-15 05:00 | NUR ---
PT HAS PULLED OUT HER F/C WITH BULB INTACT. NO VISIBLE TRAUMA. PT C/O DISCOMFORT WHEN PROVIDING PERICARE. WILL LEAVE F/C OUT FOR NOW AND HAVE RN ADDRESS NEED FOR REPLACMENT WITH PHYSICIAN IN THE MORNING
[2016-12-15 05:41] LABS: BASOPHILS 0.8 % (0-2); EOSINOPHILS 2.9 % (0-7); HEMATOCRIT 36.5 % (36.0-48.0); IMMATURE GRANULOCYTES 0.5 % (0-5); LYMPHOCYTES 11.6 % (15-50); MCH 28.9 pg (26.0-34.0); MCHC 32.9 g/dL (31.0-37.0); MEAN PLATELET VOLUME 11.1 fL (7.4-10.4); MONOCYTES 9.2 % (2-11); PLATELET COUNT 266 10x3/uL (130-400); RBC 4.15 10x6/uL (4.00-5.40); RDW 16.4 % (11.5-14.5); WBC 12.6 10x3/uL (4.8-10.8)
[2016-12-15 06:06] LABS: ALBUMIN 2.7 g/dL (3.4-5.0); ANION GAP 23.4 mmol/L (8-16); BILIRUBIN - TOTAL 0.5 mg/dL (0.2-1.3); CALCIUM 8.5 mg/dL (8.5-10.1); CARBON DIOXIDE 19.9 mmol/L (21.0-32.0); POTASSIUM - SERUM 3.3 mmol/L (3.5-5.1); PROTEIN - SERUM 7.2 g/dL (6.4-8.2); VANCOMYCIN - RANDOM 10.2 ug/mL (10.0-20.0)
--- NOTE | 2016-12-15 06:29 | NUR ---
PT ABLE TO SWALLOW PROTONIX WHOLE WITHOUT DIFFICULTY.
--- NOTE | 2016-12-15 06:30 | NUR ---
PT WANTED TO VOID. GOTTEN UP TO BSC WITH ASSIST OF 2. MODERATE ASSIST. VOIDED EASILY URINE BERKLEY. PERICARE GIVEN ASSISSTED BACK TO BED
--- NOTE | 2016-12-15 07:00 | NUR ---
REPORT RECIEVED FROM OFF GOING NURSE. SEE FLOW SHEET FOR ASSEMENT. PT VERY CONFUSED. ALERT TO PERSON ONLY. FOLLOWS SIMPLE COMMANDS INTERMITTENTLY BUT WHENEVER ASKED TO DO SOMETHING SHE SAYS "HANG ON, HOLD ON, HANG ON, HOLD ON." AND HAS TO BE RETOLD TO FOLLOW COMMAND. AT BED SIDE CONCERED ABOUT PT'S CONDITION. EXPLAINED AND UPDATED ABOUT PT'S PROGRESS AND CONDITION. NO DR AT BEDSIDE AT THIS TIME. CALL LIGHT IN REACH. WILL CONT POC
--- NOTE | 2016-12-15 07:30 | NUR ---
BREAKFAST SPOONFED TO PT. BETWEEN EACH BITE, PT WOULD REPEAT "HANG ON AND HOLD ON" PT WOULD NOT HAVE FOOD IN MOUTH AND WOULD CLOSE EYES AND REST. ATTENTION SPAN IS VERY POOR AND HAD TO PROMPT TO FEED PT. APPROXIMETLY 20% OF BREAKFAST ATE. WILL CONT POC
--- NOTE | 2016-12-15 09:00 | NUR ---
DIALYSIS NURSE AT BEDSIDE.
--- NOTE | 2016-12-15 10:00 | NUR ---
DIALYSIS NURSE UNABLE TO PULL ANYFLUID OFF PT DUE TO TRIALYISIS NOT FUNCTIONING CORRECTLY. HE PAGED THE SPRING FITTER HELPER.
--- NOTE | 2016-12-15 10:30 | NUR ---
PATROL SUPERVISOR HAS PLANS TO CONSULT SURGERY FOR A HEMISPLIT PORT FOR TOMORROW AND RESUME DIALYSIS TOMORROW. SEE PATROL SUPERVISOR NOT FOR FURTHER INFORMATION. PT AND AWARE.
--- NOTE | 2016-12-15 10:42 | NUR ---
Mrs. Ross had bedside hemodialysis today via her right IJ Trialysis from 942 until 1014. Catheter flow was extremely poor. Unable to keep even a 200 blood flow . Reversed pull twice without any better flow. Nyasia Rubio APN notified and treatment was terminated. DONOR SERVICES TEAM LEADER to notify surgery and HD to be reattempted tommorow after cath exchange. I recommended a hemosplit. When I hooked syringes to the cath I had a pretty decent pull and return but could not get a decent flow on the machine. Zero net fluid removed. Post viral signs were: B/P: 146/68, Hr: 89, Temp: 97.6, Resps: 16.
--- NOTE | 2016-12-15 11:30 | NUR ---
LUNCH WAS SPOON FED TO PT. PT TOLERATED WELL BUT AGAIN HAD A POOR ATTENTION SPAN AND HAD TO BE REMINDED TO STAY FOCUSED TO EAT LUNCH. PUREE FOOD TOLERATED WELL. ATE APPROXIMETLY 40%. CALL LIGHT IN REACH. WILL CONT POC
--- NOTE | 2016-12-15 12:43 | NUR ---
NUTRITION F/U MAXIMILIANO REVIEWED, NURSING REPORTS ~ 40% INTAKE LUNCH. REQUIRED FEEDING. NOTE POSSIBLE HEMOSPLIT PLACEMENT FOR HD. RD FOLLOWING
--- NOTE | 2016-12-15 13:00 | NUR ---
PT RESTING IN BED QUIETLY WITH NO S/SX OF DISTRESS/DISOCMFORT NOTED. CALL LIGHT IN REACH. WILL CONT POC
--- NOTE | 2016-12-15 14:50 | NUR ---
PT BREATHING NORMAL AND UNLABORED. DENIES PAIN. RESTING WITH EYES CLOSED. CALL LIGHT IN REACH. WILL CONT POC
--- NOTE | 2016-12-15 15:10 | NUR ---
PT REMOVED MITTEN RESTRAINTS AND TOOK OFF TRIALYSIS DRESSING. STOPPED PT BEFORE TO SHE PULLED OUT HER LINE. MITTENS REAPPLIED TO PT AND DRESSING APPLIED OVER TRIALYSIS. CALL LIGHT IN REACH. WILL CONT POC
--- NOTE | 2016-12-15 16:25 | NUR ---
ASSISTED PT WITH BEDSIDE COMMOND. ABLE TO TURN SELF WITH MINIMAL ASSISTANCE. 200 OF URINE NOTED. PERICARE PERFORMED. NEW BED PAD UNDER PT. CALL LIGHT IN REACH. WILL CONT POC.
--- NOTE | 2016-12-15 17:00 | NUR ---
SPOON FED PT'S MEAL. LIKES SUGAR FREE JELLO. ATE ABOUT 30% OF REGULAR MEAL AND 100% OF THE JELLO CUP. BREATHING NORMAL AND UNLABORED. CALL LIGHT IN REACH. WILL CONT POC
--- NOTE | 2016-12-15 19:21 | NUR ---
RT AT BEDSIDE FOR TREATMENT
--- NOTE | 2016-12-15 19:30 | NUR ---
REPORT RECEIVED CARE ASSUMED. INITIAL ASSESSMENT COMPLETED SEE FLOWSHEET. PT AWAKE, PLEASANT AND COOPERATIVE STILL WITH SOME CONFUSION. STATES IT IS 1976 SHE IS IN [place] AND HER NAME IS NISHA AND DOES NOT KNOW WHY SHE IS HERE. PT IS BEING MONITORED PER STANDARD ICU PROTOCOL WITH ALL ALARMS SET AND VERIFIED. PT IS WEARING MITTENS BILATERALLY DUE TO HER HISTORY OF PULLING OUT LINES AND NOT COMPREHENDING THE CONSEQUENCES. PT DOES STILL REACH FOR THE TRIALYSIS CATHETHER WHEN MITTENS REMOVED FOR ACTIVE ROM. PT IS IN DIRECT VISION OF THE NURSES STATION AND REQUIRES CLOSE MONITORING FOR HER SAFETY.
--- NOTE | 2016-12-15 20:00 | NUR ---
CALL RECEIVED FROM SPOUSE. PASSWORD VERIFIED. UPDATE GIVEN QUESTIONS ANSWERED. STATES HE WANTS TO SPEAK DR. OVALLE ABOUT HIS CONCERNS THAT PT DOES NOT RECOGNIZE HIM. NOTE LEFT ON CHART. WILL PASS THIS ONTO DAY RN WELL.
--- NOTE | 2016-12-15 22:30 | NUR ---
PT STATED SHE NEEDED TO USE THE BATHROOM. PT ASSISTED UP TO BSC VOIDED FREELY. COMPLETE BATH DONE AND LINENS CHANGED. PT WITH PERIODS OF LUCIDNESS KNOWING THE CORRECT YEAR AND THAT SHE IS IN THE HOSPITAL. STILL WITH PERIODS OF SOME CONFUSION AT TIMES.
--- NOTE | 2016-12-15 23:00 | NUR ---
SHIFT REASSESSMENT COMPLETED SEE FLOWSHEET. PT WITH PERIODS OF MORE LUCIDNESS THAN EARLIER. DOES CONVERSE IN IN REALITY THEN SAYS THINGS THAT ARE OUT OF CONTEXT OF THE CONVERSATION AND MAKE NO SENSE. WILL CONTINUE TO REINFORCE REALITY FOR PT AND REORIENTATE NEEDED. PT HAS BEEN UP TO C WITH ASSIST AND HAS BEEN GIVEN A COMPLETE BATH. PT DID PARTICIPATE IN BATHING WASHING HER FRONT SIDE WILLINGLY. ALL LINENS CHANGED AND PT ASSISTED BACK INTO BED AND SHE TURNED SELF TO SIDE. PT IS ABLE TO TURN SELF SIDE TO SIDE ALTHOUGH REQUIRES PROMPTING AT TIMES. NOTE PT DENIES PAIN EVERY TIME WHEN ASKED BUT C/O PAIN IN LEGS WHEN LEGS TOUCHED STATING IT IS FROM HER DIABETES. NO VISIBLE AREA OF TRAUMA TO LEGS. SAM BUTT PASTE APPLIED TO ABRASION ON COCCYX. CONTINUE TO MONITOR AND ABNORMALITIES RECORDED
[2016-12-16] VITALS (15 sets, daily range): BP systolic 90–139; BP diastolic 43–84
--- NOTE | 2016-12-16 01:00 | NUR ---
PT IS SLEEPING WELL TONIGHT. RESP REG AND NONLABORED.
--- NOTE | 2016-12-16 03:00 | NUR ---
SHIFT REASSESSMENT COMPLETED SEE FLOWSHEET
--- NOTE | 2016-12-16 03:30 | NUR ---
VENOUS SPECIMEN DRAWN FOR AM LAB ANALYSIS
[2016-12-16 04:00] LABS: BASOPHILS 0.5 % (0-2); EOSINOPHILS 3.5 % (0-7); HEMATOCRIT 35.4 % (36.0-48.0); HEMOGLOBIN 11.7 g/dL (12-16); IMMATURE GRANULOCYTES 0.9 % (0-5); LYMPHOCYTES 12.9 % (15-50); MCHC 33.1 g/dL (31.0-37.0); MCV 87.8 fL (80.0-100.0); MEAN PLATELET VOLUME 11.2 fL (7.4-10.4); MONOCYTES 13.3 % (2-11); NEUTROPHILS 68.9 % (40-80); PLATELET COUNT 262 10x3/uL (130-400); RBC 4.03 10x6/uL (4.00-5.40); RDW 16.5 % (11.5-14.5); WBC 11.6 10x3/uL (4.8-10.8)
[2016-12-16 04:08] LABS: ANION GAP 22.7 mmol/L (8-16); CALCIUM 8.5 mg/dL (8.5-10.1); CARBON DIOXIDE 21.8 mmol/L (21.0-32.0); POTASSIUM - SERUM 3.5 mmol/L (3.5-5.1); VANCOMYCIN - RANDOM 10.1 ug/mL (10.0-20.0)
--- NOTE | 2016-12-16 06:39 | NUR ---
DR. OTOOLE HERE TO SEE PT. HERE TO VISIT WITH DOCTOR WHO ANSWERED HIS QUESTIONS.
--- NOTE | 2016-12-16 07:00 | NUR ---
REPORT RECEIVED FROM OFF GOING NURSE. SEE FLOW SHEET FOR ASSESSMENT. PT HAND RESTRAINTS REMOVED THE PREVIOUS SHIFT. PT KNOWS WHO SHE IS, WHAT YEAR IT IS BUT IS UNAWARE OF WHY SHE IS IN THE "[place]". ORIENTED THAT WHY SHE WAS AT [facility]. PT CONFUSED AGGITATED FOR NO APPARENT REASON. DENIES PAIN AND DENIES NEEDS BUT IS SHORT AND RUDE WITH STAFF. WHENEVER INSULTING STAFF, HER STATEMENTS WHERE DISORGANIZED AND RANDOM. CALL LIGHT IN REACH. WILL CONT POC.
--- NOTE | 2016-12-16 08:25 | NUR ---
PT STATED THAT SHE WAS GOING TO PEE THE BED. ASKED IF SHE WOULD LIKE TO USE THE BED SIDE COMMODE AND SHE STATED YES. ASSISTED TO THE BED SIDE COMMODE WITH A NORMAL STEADY GAIT WITH X1 ASSISTANCE. PT REQUESTED PRIVACY SO CURTAIN WAS DRAWN WITH ABOUT A FOOT GAP WHERE PT COULD BE SUPERVISED. PT WAS USING THE RESTROOM AND BEING SUPERVISED OUT SIDE OF THE ROOM WHENEVER THE CAME IN TO ICU. HE WAS STANDING OUTSIDE OF THE ROOM STILL IN VEIW. I WENT TO CHECK ON ANOTHER PT WHENEVER I SAW THE HUSAND WALK IN THE ROOM AND THE PT REMAINED STILL ON THE BED SIDE COMMODE. APPROXIMETLY 20 SECONDS, THE CAME OUT OF THE ROOM STATED THAT SHE GOT UP BY HER SELF AND LOST HER BALANCE. THE PT WAS FOUND ON HER KNEES FACING THE BED SIDE COMMONDE. ATTEMPTED TO STAND PT UP WITH OTHER ASSISTANCE FROM NURSES. PT UNABLE TO STAND. ASSTISTED PT TO HER BACK WITH DRAW SHEET UNDER PT. PILLOW PROVIDED AND CODE MUSCLE CALLED. WHILE WAITING FOR CODE MUSCLE, PT ASSESSED. NO S/SX OF OBVIOUS INJURY AND PT DENIES PAIN. MORE PEOPLE ARRIVED AND PT WAS ASSISTED BACK TO BED. VSS. NO CHANGE FROM PERVIOUS NERUO ASSESSMENT. AGIAIN, THE PT DENIES ANY PAIN. SPOKE WITH AND STATED THAT SHE DIDNT HIT HER HEAD. NOTIFIED.
--- NOTE | 2016-12-16 11:00 | NUR ---
NO CHANGE FROM PTS PREVIOUS ASSESSMENT. REMAINS CONFUSED AND RUDE TO STAFF. DENIES PAIN VERBALLY. CALL LIGHT IN REAHC. WILL CONT POC
--- NOTE | 2016-12-16 15:00 | NUR ---
ASSISTED PT TO BSC. PT VOIDED. 1:1 SUPERVISISON WHILE PT USED COMMODE. PERICARE PREFORMED AND PT TRANSFERED BACK TO BED WITH NO ISSUES. CALL LIGHT IN REACH. WILL CONT POC
--- NOTE | 2016-12-16 15:53 | NUR ---
REPORT CALLED TO TERRELL RENTERIA TO ROOM 2134. ALL BELONGINS ACCOUNTED FOR. 0 S/SX OF DISTRESS/DISCOMFORT NOTED. BREATHING NORMAL AND UNLABORED.
[2016-12-16 21:08] LABS: HSV 1 DNA (PCR) Negative (Negative); HSV 2 DNA (PCR) Negative (Negative)
[2016-12-17 01:40] VITALS: BP 94/52
[2016-12-17 04:00] VITALS: BP 88/52
--- NOTE | 2016-12-17 05:15 | NUR ---
PT WATCHING TV HOB 45. FAMILY SITTING AT BEDSIDE. PT DENIES ANY NEEDS. NO S/S OF DISTRESS. BED LOW AND CALL LIGHT IN REACH. WILL CPOC
[2016-12-17 06:18] LABS: BASOPHILS 0.6 % (0-2); EOSINOPHILS 4.1 % (0-7); HEMATOCRIT 36.5 % (36.0-48.0); HEMOGLOBIN 12.2 g/dL (12-16); IMMATURE GRANULOCYTES 0.7 % (0-5); LYMPHOCYTES 13.3 % (15-50); MCH 29.3 pg (26.0-34.0); MCHC 33.4 g/dL (31.0-37.0); MCV 87.5 fL (80.0-100.0); MEAN PLATELET VOLUME 11.6 fL (7.4-10.4); MONOCYTES 13.2 % (2-11); NEUTROPHILS 68.1 % (40-80); RBC 4.17 10x6/uL (4.00-5.40); RDW 16.5 % (11.5-14.5); WBC 11.3 10x3/uL (4.8-10.8)
[2016-12-17 06:23] LABS: PLATELET COUNT 315 10x3/uL (130-400)
[2016-12-17 06:51] LABS: ANION GAP 24.8 mmol/L (8-16); BILIRUBIN - TOTAL 0.56 mg/dL (0.2-1.3); CALCIUM 9.2 mg/dL (8.5-10.1); CARBON DIOXIDE 19.4 mmol/L (21.0-32.0); CREATININE - SERUM 5.3 mg/dL (0.6-1.3); POTASSIUM - SERUM 3.2 mmol/L (3.5-5.1); PROTEIN - SERUM 7.8 g/dL (6.4-8.2); VANCOMYCIN - RANDOM 9.5 ug/mL (10.0-20.0)
[2016-12-17 08:00] VITALS: BP 105/53
[2016-12-17 12:00] VITALS: BP 118/60
--- NOTE | 2016-12-17 12:45 | NUR ---
REPOSITIONED FOR COMFORT. HELGA WITH ST PAGED TO EVAL FOR CHANGE IN PUREED DIET. AT BS. CALL LIGHT IN REACH. BED ALARM ON. WILL CONT. PLAN OF CARE.
[2016-12-17 16:00] VITALS: BP 104/56
[2016-12-17 22:16] VITALS: BP 145/71
[2016-12-18 01:17] VITALS: BP 115/60
--- NOTE | 2016-12-18 04:08 | NUR ---
RESTING WITH EYES CLOSED, RESPERATIONS EVEN, NO S/S DISTRESS NOTED
[2016-12-18 04:36] LABS: BASOPHILS 0.9 % (0-2); EOSINOPHILS 5.1 % (0-7); HEMATOCRIT 36.6 % (36.0-48.0); HEMOGLOBIN 12.2 g/dL (12-16); IMMATURE GRANULOCYTES 0.5 % (0-5); LYMPHOCYTES 16.8 % (15-50); MCH 29.2 pg (26.0-34.0); MCHC 33.3 g/dL (31.0-37.0); MCV 87.6 fL (80.0-100.0); MEAN PLATELET VOLUME 11.2 fL (7.4-10.4); MONOCYTES 13.4 % (2-11); NEUTROPHILS 63.3 % (40-80); PLATELET COUNT 281 10x3/uL (130-400); RBC 4.18 10x6/uL (4.00-5.40); RDW 16.5 % (11.5-14.5); WBC 10.4 10x3/uL (4.8-10.8)
[2016-12-18 04:52] LABS: ANION GAP 16.4 mmol/L (8-16); CALCIUM 9.6 mg/dL (8.5-10.1); CARBON DIOXIDE 23.8 mmol/L (21.0-32.0); CREATININE - SERUM 4.6 mg/dL (0.6-1.3); POTASSIUM - SERUM 3.2 mmol/L (3.5-5.1); VANCOMYCIN - RANDOM 9.2 ug/mL (10.0-20.0)
[2016-12-18 05:28] VITALS: BP 141/51
--- NOTE | 2016-12-18 05:57 | NUR ---
RN NOTE: PT SITTING UP IN BED WATCHING TV DURING THE NIGHTTIME MED PASS. PT IS A,[place],OX3. PT HAD QUESTIONS ABOUT HER INSULIN, SO I PROVIDED PT WITH A WRITTEN COPY OF HER INSULIN ORDERS TO REVIEW. NO OTHER QUESTIONS AFTER THAT. PT COVERED W/ INSULIN PER MD ORDER. WILL CONT TO MONITOR.
[2016-12-18 08:02] VITALS: BP 134/69
--- NOTE | 2016-12-18 08:45 | NUR ---
AM MEDS GIVEN AT THIS TIME, PT REFUSED TO TAKE COREG PT STATED " IT GIVES ME A HEADACHE AND I WILL NOT BE ABLE TO GET AROUND ANYMORE." EXPLAINED TO PT WHAT COREG WAS USED FOR BUT PT STILL REFUSED TO TAKE MED. PT IN BED, EATING BREAKFAST DENIES ANY NEEDS AT THIS TIME, CALL LIGHT IN REACH, NAD NOTED, WILL CONTINUE TO MONITOR.
--- NOTE | 2016-12-18 11:31 | NUR ---
CALLED PHARMACY AND SPOKE WITH ANNMARIE, INFORMED ANNMARIE THAT I NEED ZOCOR FOR PT. ANNMARIE STATED THAT THEY WOULD BRING IT UP SOON.
[2016-12-18 12:33] VITALS: BP 123/69
--- NOTE | 2016-12-18 13:00 | NUR ---
VERBAL ORDER FROM DR. WAGONER FOR ONE TIME DOSE OF K [id number].
[2016-12-18 16:26] VITALS: BP 122/56
--- NOTE | 2016-12-18 17:11 | NUR ---
BLOOD SUGAR OF 348, 6UNITS OF HUMULIN R GIVEN PER S/S. PT DENIES ANY NEEDS AT THIS TIME, DIETARY AT BEDSIDE TO GIVE PT HER DINNER. FAMILY AT BEDSIDE, CALL LIGHT IN REACH, NAD NOTED.
[2016-12-18 20:16] VITALS: BP 91/51
[2016-12-19 00:02] VITALS: BP 100/59
--- NOTE | 2016-12-19 02:43 | NUR ---
PT LYING IN BED WITH HOB UP FOR COMFORT. EYES CLOSED. CHEST RISING AND FALLING. BED IN LOWEST POSITION AND CALL LIGHT WITHIN REACH.
[2016-12-19 04:50] VITALS: BP 100/62
[2016-12-19 04:55] LABS: BASOPHILS 0.6 % (0-2); EOSINOPHILS 4.4 % (0-7); HEMOGLOBIN 11.2 g/dL (12-16); IMMATURE GRANULOCYTES 0.7 % (0-5); LYMPHOCYTES 14.1 % (15-50); MCH 29.2 pg (26.0-34.0); MCHC 32.9 g/dL (31.0-37.0); MCV 88.5 fL (80.0-100.0); MEAN PLATELET VOLUME 11.2 fL (7.4-10.4); MONOCYTES 11.5 % (2-11); NEUTROPHILS 68.7 % (40-80); PLATELET COUNT 298 10x3/uL (130-400); RBC 3.84 10x6/uL (4.00-5.40); RDW 16.5 % (11.5-14.5); WBC 11.1 10x3/uL (4.8-10.8)
[2016-12-19 05:10] LABS: ANION GAP 18.3 mmol/L (8-16); CALCIUM 9.1 mg/dL (8.5-10.1); CARBON DIOXIDE 20.6 mmol/L (21.0-32.0); CREATININE - SERUM 4.5 mg/dL (0.6-1.3); VANCOMYCIN - RANDOM 7.1 ug/mL (10.0-20.0)
[2016-12-19 05:14] LABS: POTASSIUM - SERUM 3.9 mmol/L (3.5-5.1)
[2016-12-19 08:47] VITALS: BP 81/46
--- NOTE | 2016-12-19 09:13 | NUR ---
AM MEDS GIVEN AT THIS TIME. PT WANTS TO SLEEP THIS AM, STATES SHE DID NOT HAVE A GOOD NIGHT. DENIES ANY NEEDS AT THIS TIME. CALL LIGHT IN REACH, NAD NOTED, WILL CONTINUE PLAN OF CARE.
--- NOTE | 2016-12-19 11:58 | NUR ---
BLOOD SUGAR OF 244 4UNITS OF HUMALOG GIVEN PER S/S. KANDIS FROM PHYSICAL THERAPY AT BEDSIDE TO GET PT TO WALK. PT REFUSED TO WALK AT THIS TIME. STATED " I AM TOO TIRED". INFORMED PT THE IMPORTANCE OF AMBULATING TO GET HER STRENGTH BACK, PT STATED " I WALKED YESTERDAY AND I AM DOING PRETTY GOOD." PT AMBULATED TO BATHROOM AND BACK TO BED WITH PHYSICAL THERAPY. NAD NOTED, CALL LIGHT IN REACH.
[2016-12-19 12:03] VITALS: BP 106/58
[2016-12-19 16:23] VITALS: BP 114/66
[2016-12-19 20:43] VITALS: BP 143/70
--- NOTE | 2016-12-19 21:15 | NUR ---
PT STATE HUNGRY, SNACK CRACKERS AND 2% MILK GIVEN.
[2016-12-20 00:06] VITALS: BP 131/58
--- NOTE | 2016-12-20 02:50 | NUR ---
REST IN BED, EYE CLOSE, CALL LIGHT IN REACH.
--- NOTE | 2016-12-20 04:05 | NUR ---
LAYING ON RIGHT SIDE, HOB 20 DEGREE, CALL LIGHT IN REACH.
[2016-12-20 05:00] VITALS: BP 114/54
[2016-12-20 05:37] LABS: BASOPHILS 0.6 % (0-2); EOSINOPHILS 6.1 % (0-7); HEMATOCRIT 35.3 % (36.0-48.0); HEMOGLOBIN 11.4 g/dL (12-16); IMMATURE GRANULOCYTES 0.8 % (0-5); LYMPHOCYTES 14.7 % (15-50); MCH 28.9 pg (26.0-34.0); MCHC 32.3 g/dL (31.0-37.0); MCV 89.6 fL (80.0-100.0); MONOCYTES 10.5 % (2-11); NEUTROPHILS 67.3 % (40-80); PLATELET COUNT 273 10x3/uL (130-400); RBC 3.94 10x6/uL (4.00-5.40); RDW 16.4 % (11.5-14.5); WBC 9.9 10x3/uL (4.8-10.8)
[2016-12-20 05:53] LABS: ANION GAP 17.6 mmol/L (8-16); CALCIUM 9.3 mg/dL (8.5-10.1); CARBON DIOXIDE 21.4 mmol/L (21.0-32.0); CREATININE - SERUM 4.2 mg/dL (0.6-1.3); VANCOMYCIN - RANDOM 6.4 ug/mL (10.0-20.0)
--- NOTE | 2016-12-20 07:15 | NUR ---
REPORT RECEIVED. RR EVEN AND UNLABORED, PT DENIES NEEDS AT THIS TIME. PT REPORTS FEELING "MUCH BETTER" THIS MORNING. WILL CTM.
[2016-12-20 08:00] VITALS: BP 114/58
[2016-12-20 12:00] VITALS: BP 104/48
--- NOTE | 2016-12-20 15:42 | NUR ---
Patient Name: NISHA MORALES Encounter No: [id number] : 1940 Primary Insurance: MEDICARE A & B Anticipated DC Date: 12-21-2016 Planned Disposition: Home with Home Health External Planned Provider: PSYCHIATRIC DCP follow-up note: CM RECEIVED CALL FROM [facility], , WHO REPORTS SHE NEEDS THE ORDER FOR HOME HEALTH SIGNED BY THE DOCTOR OR TELEPHONE ORDER BY THE NURSE. CM OBTAINED SIGNED TELEPEHONE ORDER FROM DEXTER BARR. CM FAXED REFERRAL TO PSYCHIATRIC AT [phone]. [facility] WILL ADMIT ON TUESDAY OR TUESDAY OF THIS WEEK. FOR DISCHARGE, NOTIFY PSYCHIATRIC AT [phone], FAX DISCHARGE INFORMATION TO PSYCHIATRIC AT [phone]. Bakari Rios, CASE MANGEMENT
--- NOTE | 2016-12-20 16:37 | NUR ---
Patient Name: NISHA MORALES Encounter No: [id number] : 1940 Primary Insurance: MEDICARE A & B Anticipated DC Date: 12-21-2016 Planned Disposition: Home with Home Health External Planned Provider: [facility] DCP follow-up note: CM RECEIVED CALL FROM [facility], , WHO REPORTS [facility] WILL ADMIT ON TUESDAY OF THIS WEEK. FOR DISCHARGE, NOTIFY [facility] AT [phone], FAX DISCHARGE INFORMATION TO [facility] AT [phone]. Bakari Rios, CASE MANGEMENT
--- NOTE | 2016-12-20 17:09 | NUR ---
PT REFUSED TX . SAYS IT CAUSES DRYNESS OF THE MOUTH. REFUSED
--- NOTE | 2016-12-20 17:20 | NUR ---
OT NOTE: PT COMPLETED BED MOB AND DYNAMIC SITTING BALANCE WITH SBA. KEVIN BRUNO COTA/Siddhartha
[2016-12-20 17:21] VITALS: BP 104/59
--- NOTE | 2016-12-20 18:43 | NUR ---
PT RESTING QUIETLY, RR EVEN AND UNLABORED. PT DENIES NEEDS AT THIS TIME. WILL GIVE REPORT ON PT CONDITION FOR THE DAY.
[2016-12-20 21:30] VITALS: BP 121/57
--- NOTE | 2016-12-21 01:50 | NUR ---
PT IN BED WITH HOB UP FOR COMFORT. EYES CLOSED. CHEST RISING AND FALLING. ALERT & ORIENTED. FSBS ACHS. LEFT SIDE PACEMAKER. NO O2. RIGHT IJ TRIALYSIS. UP WITH ASSIST. BED IN LOWEST POSITION AND CALL LIGHT WITHIN REACH.
[2016-12-21 02:05] VITALS: BP 122/61
[2016-12-21 04:14] LABS: BASOPHILS 0.3 % (0-2); EOSINOPHILS 6.9 % (0-7); HEMATOCRIT 33.6 % (36.0-48.0); IMMATURE GRANULOCYTES 0.6 % (0-5); LYMPHOCYTES 14.6 % (15-50); MCH 29.2 pg (26.0-34.0); MCHC 32.7 g/dL (31.0-37.0); MCV 89.1 fL (80.0-100.0); MEAN PLATELET VOLUME 11.1 fL (7.4-10.4); MONOCYTES 7.7 % (2-11); NEUTROPHILS 69.9 % (40-80); PLATELET COUNT 267 10x3/uL (130-400); RBC 3.77 10x6/uL (4.00-5.40); RDW 16.7 % (11.5-14.5); WBC 9.6 10x3/uL (4.8-10.8)
[2016-12-21 04:39] LABS: ANION GAP 17.7 mmol/L (8-16); CALCIUM 8.9 mg/dL (8.5-10.1); CARBON DIOXIDE 21.2 mmol/L (21.0-32.0); CREATININE - SERUM 3.8 mg/dL (0.6-1.3); POTASSIUM - SERUM 3.9 mmol/L (3.5-5.1); VANCOMYCIN - RANDOM 5.6 ug/mL (10.0-20.0)
--- NOTE | 2016-12-21 07:00 | NUR ---
RECEIVED REPORT. ASSUMED CARE OF PATIENT. CALL LIGHT WITHIN REACH. EYES CLOSED, RESP EVEN AND UNLABORED. EASILY AROUSED. NO DISTRESS.
[2016-12-21] MEDS ORDERED: PROTONIX40 MG PO (07:02)
[2016-12-21] MEDS ORDERED: RENAGEL800 MG PO (07:02)
[2016-12-21] MEDS ORDERED: LANTUS INSULIN10 ML SC (07:03)
[2016-12-21] MEDS ORDERED: COMBIVENT RESPIM4 GM INH (07:04)
[2016-12-21 08:00] VITALS: BP 160/64
--- NOTE | 2016-12-21 09:00 | NUR ---
AT BEDSIDE FOR ROUNDS. CALL LIGHT WITHIN REACH. PATIENT REFUSED RENAGEL AND FLONASE NASAL SPRAY THIS AM. NO DISTRESS. PATIENT HAS RECEIVED DISCHARGE ORDERS THIS AM. NOTIFIED OF THESE NEW ORDERS FROM [facility].
--- NOTE | 2016-12-21 11:58 | NUR ---
FSBS 231. 4 UNITS HUMALIN ADMINISTERED PER SLIDING SCALE. DIET LEMON T[place] PROVIDED AT THIS TIME. AT BEDSIDE. NO DISTRESS. CALL LIGHT WITHIN REACH.
[2016-12-21 12:00] VITALS: BP 110/52
--- NOTE | 2016-12-21 14:07 | NUR ---
1300 TRIALYSIS CATHETER REMOVED FROM RIGHT IJ. PRESSURE HELD FOR 15 MINUTES. NO BLEEDING FROM SITE. 2X2 GAUZE APPLIED AND SECURED WITH CLEAR TEGADERM. CATHETER TIP INTACT. 1315 DISCHARGE INSTRUCTIONS PROVIDED TO PATIENT AND HER . PATIENT STATES "I KNOW" WHEN GIVING INSTRUCTIONS ABOUT HIGH PHOSPHOROUS MEDICATIONS BUT PATIENT STATES SHE IS NOT GOING TO TAKE THEM. PATIENT APPEARS IF SHE IS NOT TAKING HER CONDITION SERIOUSLY. 1330 PATIENT ASSISTED TO GET DRESSED. 1355 PATIENT LEFT UNIT VIA WHEELCHAIR. PATIENT LEFT UNIT WITH ALL PERSONAL BELONGINGS. PATIENT HAD NO QUESTIONS FOR THIS GLASSIE. PATIENT DISCHARGE TO HOME AT THIS TIME VIA PRIVATE CAR WITH HER SPOUSE.
--- NOTE | 2016-12-21 14:59 | NUR ---
Patient Name: NISHA MORALES Encounter No: [id number] : 1940 Primary Insurance: MEDICARE A & B Anticipated DC Date: 12-21-2016 Planned Disposition: Home with Home Health External Planned Provider: [facility] LATE ENTRY: DCP follow-up note: CM RECEIVED DISCHARGE ORDER, NOTIFIED RISHABH AT [facility] AT [phone], FAXED DISCHARGE INFORMATION TO [facility] AT [phone]. Bakari Rios, CASE MANGEMENT
[2017-01-06 16:13] LABS: FUNGUS MYCOLOGY CULTURE Final report (())
[2017-01-27 11:16] LABS: ACID FAST CULTURE Negative (()); ACID FAST SMEAR Negative (())
== END 2016-12-21 13:55 | disposition home health service (06) | DRG 280 ==
LOC: D.ER 05:38 → D.ICU 06:35 → D.SDCHOLD 06:35 → D.M2 06:35 → D.ICU 15:25 → D.M2 12-16 16:17
PROVIDERS: Emergency Medicine; Family Medicine; Internal Medicine Cardiovascular Disease; Internal Medicine Nephrology; Internal Medicine Pulmonary Disease; Psychiatry & Neurology Neurology; Surgery; ADMIT Family Medicine
PROC: B2121ZZ Fluoroscopy of Single Coronary Artery Bypass Graft using Low Osmolar Contrast (ICD-10-PCS; 2016-12-02)
PROC: B2111ZZ Fluoroscopy of Multiple Coronary Arteries using Low Osmolar Contrast (ICD-10-PCS; 2016-12-02)
PROC: B2181ZZ Fluoroscopy of Left Internal Mammary Bypass Graft using Low Osmolar Contrast (ICD-10-PCS; 2016-12-02)
PROC: B2151ZZ Fluoroscopy of Left Heart using Low Osmolar Contrast (ICD-10-PCS; 2016-12-02)
PROC: 4A023N7 Measurement of Cardiac Sampling and Pressure, Left Heart, Percutaneous Approach (ICD-10-PCS; 2016-12-02)
PROC: 0T9B70Z Drainage of Bladder with Drainage Device, Via Natural or Artificial Opening (ICD-10-PCS; principal; 2016-12-02 11:00)
PROC: 02HV33Z Insertion of Infusion Device into Superior Vena Cava, Percutaneous Approach (ICD-10-PCS; 2016-12-03)
PROC: 5A09357 Assistance with Respiratory Ventilation, Less than 24 Consecutive Hours, Continuous Positive Airway Pressure (ICD-10-PCS; 2016-12-03)
PROC: 5A1D70Z Performance of Urinary Filtration, Intermittent, Less than 6 Hours Per Day (ICD-10-PCS; 2016-12-03)
PROC: 009U3ZZ Drainage of Spinal Canal, Percutaneous Approach (ICD-10-PCS; 2016-12-09)
DX: I21.4 Non-ST elevation (NSTEMI) myocardial infarction (principal); I50.23 Acute on chronic systolic (congestive) heart failure; J96.01 Acute respiratory failure with hypoxia; J69.0 Pneumonitis due to inhalation of food and vomit; G93.41 Metabolic encephalopathy; A41.9 Sepsis, unspecified organism; I13.0 Hypertensive heart and chronic kidney disease with heart failure and stage 1 through stage 4 chronic kidney disease, or unspecified chronic kidney disease; N17.9 Acute kidney failure, unspecified; E87.2 Acidosis; J44.0 Chronic obstructive pulmonary disease with (acute) lower respiratory infection; I42.9 Cardiomyopathy, unspecified; N18.4 Chronic kidney disease, stage 4 (severe); J45.901 Unspecified asthma with (acute) exacerbation; J98.11 Atelectasis; M31.0 Hypersensitivity angiitis; F05 Delirium due to known physiological condition; B37.49 Other urogenital candidiasis; E11.22 Type 2 diabetes mellitus with diabetic chronic kidney disease; E11.65 Type 2 diabetes mellitus with hyperglycemia; I25.10 Atherosclerotic heart disease of native coronary artery without angina pectoris; E11.21 Type 2 diabetes mellitus with diabetic nephropathy; E11.40 Type 2 diabetes mellitus with diabetic neuropathy, unspecified; K21.9 Gastro-esophageal reflux disease without esophagitis; E78.5 Hyperlipidemia, unspecified; D64.9 Anemia, unspecified; G47.00 Insomnia, unspecified; E87.6 Hypokalemia; R00.0 Tachycardia, unspecified; Z95.5 Presence of coronary angioplasty implant and graft; Z87.891 Personal history of nicotine dependence; Z86.73 Personal history of transient ischemic attack (TIA), and cerebral infarction without residual deficits; Z85.51 Personal history of malignant neoplasm of bladder